=== PATIENT | male | born 1950 | race African-American/Black ===

== ENCOUNTER 2017-06-12 13:21 | Inpatient (IN) ==
[2017-06-12] MEDS ORDERED: 0.9 % Sodium Chloride 1,000 ML IVC ONE ×2 (13:43→14:52)
--- NOTE | 2017-06-12 13:46 | Emergency Department Note ---
Disposition Clinical Impression: Alcohol abuse, Lactic acidosis, Acute kidney injury Altered mental status Qualifiers: Altered mental status type: somnolence Qualified Code(s): R40.0 - Somnolence Disposition: Admitted As Inpatient Condition: Fair Time of Disposition: 16:10 General Adult HPI - General Chief complaint: ED Syncope Stated complaint: SYNCOPE Time Seen by Provider: 06/12/17 13:28 Source: EMS Mode of arrival: EMS Limitations: altered mental status Nursing Notes Reviewed: Yes Vital Signs Reviewed: Yes - History of Present Illness HPI Narrative: 66-year-old male presents via EMS for concerns of syncope and altered mental status. EMS gave a history of the patient was arrested last night for drunken disorderly conduct. Patient had a presumed syncopal episode. Patient's acutely altered. Patient not able to provide any history. There is no family at bedside to reside any additional history. Pain Scale: 0 - Related Data Home Medications Medication Instructions Recorded Confirmed Amlodipine Besylate 10 mg PO DAILY 06/12/17 06/12/17 Aspirin [Lo-Dose Aspirin EC] 81 mg PO DAILY 06/12/17 06/12/17 Atorvastatin Calcium [Lipitor] 20 mg PO QPM 06/12/17 06/12/17 Losartan Potassium [Cozaar] 100 mg PO DAILY 06/12/17 06/12/17 Nitroglycerin [Nitrostat] 0.4 mg SL Q5M PRN 06/12/17 06/12/17 hydroCHLOROthiazide 25 mg PO DAILY 06/12/17 06/12/17 [Hydrochlorothiazide] Allergies Allergy/AdvReac Type Severity Reaction Status Date / Time No Known Allergies Allergy Verified 06/12/17 13:26 Limitations: ROS unobtainable due to patients medical condition Past Medical History - Past Medical History Source: patient Physical Exam - General Limitations: no limitations General appearance: alert, in no apparent distress - Head Head exam: atraumatic, normocephalic, normal inspection - Eye Eye exam: Present: normal appearance, PERRL, EOMI, scleral icterus. Absent: nystagmus - ENT ENT exam: normal exam, mucous membranes dry - Neck Neck exam: Present: normal inspection - Chest Chest inspection: Present: normal inspection, symmetric chest wall rise - Respiratory Respiratory exam: Present: normal lung sounds bilaterally. Absent: respiratory distress - Cardiovascular Cardiovascular exam: Present: regular rate, normal rhythm. Absent: systolic murmur - Abdominal Exam Abdominal exam: Present: soft - Extremities Exam Extremities exam: Present: normal inspection. Absent: pedal edema - Back Exam Back exam: Present: normal inspection - Neurological Exam Neurological exam: Present: alert, CN II-XII intact. Absent: oriented X3 - Skin Skin exam: Present: warm, dry, intact, normal color Course Course Narrative: Patient is acutely altered. Patient is not able to recall where he is, the date. Patient keeps repeating stating that he would like something to drink. Patient will need an altered mental status evaluation. Disposition likely admission. - Reevaluation(s) Reevaluation #1: Discussed the case with the hospitalist who recommended to run the case by the manager transportation with the elevated lactate. Time: 15:56 Reevaluation #2: Patients results reviewed. And it appears the patient has early diverticulitis, pt already transported to the floor. Notified the hospitalist and made aware. Time: 18:09 Vital Signs Temperature 98 F 06/12/17 13:28 Pulse Rate 85 06/12/17 13:28 Respiratory Rate 18 06/12/17 13:28 Blood Pressure 95/58 06/12/17 13:28 O2 Sat by Pulse Oximetry 98 06/12/17 13:28 Temperature 98 F 06/12/17 13:28 Pulse Rate 80 06/12/17 17:27 Respiratory Rate 18 06/12/17 17:47 Blood Pressure 108/71 06/12/17 17:47 O2 Sat by Pulse Oximetry 98 06/12/17 17:27 Oxygen Delivery Oxygen Delivery Room Air Medical Decision Making - [facility] Narrative Medical decision making narrative: Patient seen and examined. Patient presents acutely altered. Patient did have evidence of lactic acidosis as well as ketoacidosis in the setting of alcoholism. Patient was given IV fluids. Patient does not have a clear source. Patient had CT scanning of the chest abdomen pelvis. Patient's head CT was negative. Patient denies drinking any other alcohol besides what he described [id number]. Patient denies any vision changes. Still producing urine. Patient will be admitted to hospital service for acute altered mental status anion gap metabolic acidosis. - Lab Data Lab results reviewed: Yes I reviewed the patient's lab results. Result diagrams: 06/12/17 14:19 06/12/17 14:19 Lab Results 0506/12/17 06/12/17 Range/Units 14:19 14:19 14:19 WBC 9.2 (4.3-11.1) K/mcL RBC 3.78 L (4.19-5.50) M/mcL Hgb 11.4 L (12.9-16.9) g/dL Hct 34.3 L (37.5-50.1) % MCV 90.7 (83.0-100.0) fL MCH 30.2 (28.0-33.3) pg MCHC 33.2 (31.6-35.5) g/dL RDW 13.8 (11.5-14.5) % Plt Count 218 (140-400) K/mcL MPV 9.8 (9.4-12.4) fL Immature Gran % 0.4 (0-4) % Seg Neutrophils % 78.5 % Lymphocytes % 11.8 % Monocytes % 8.4 % Eosinophils % 0.5 % Basophils % 0.4 % Neutrophils # 7.2 (1.6-8.9) K/mcL Lymphocytes # 1.1 (0.6-4.6) K/mcL Monocytes # 0.8 (0.0-1.3) K/mcL Eosinophils # 0.1 (0.0-0.6) K/mcL Basophils # 0.0 (0.0-0.2) K/mcL PT 11.9 (9.4-12.1) Seconds INR 1.1 APTT 20.7 L (26.0-36.0) Seconds VBG pH (7.32-7.42) pH Units VBG pCO2 (41-51) mmHg VBG pO2 (25-50) mmHg VBG HCO3 (21-27) mEq/L Sodium 139 (136-145) mEq/L Potassium 4.0 (3.5-5.1) mEq/L Chloride 103 (98-107) mEq/L Carbon Dioxide 16 L (23-29) mEq/L BUN 37 H (8-23) mg/dL Creatinine 1.94 H (0.70-1.30) mg/dL Est GFR ( Amer) 42 L (> 60) Est GFR (Non-Af Amer) 35 L (> 60) BUN/Creatinine Ratio 19 (6-26) Glucose 73 (70-105) mg/dL Calculated Osmolality 295 (280-300) Lactic Acid (0.5-2.2) mmol/L Calcium 9.5 (8.6-10.3) mg/dL Phosphorus (2.7-4.5) mg/dL Magnesium (1.6-2.6) mg/dL Total Bilirubin 0.4 (0.3-1.0) mg/dL Direct Bilirubin 0.1 (0.0-0.2) mg/dL Indirect Bilirubin 0.3 (0.0-1.2) mg/dL AST 27 (13-39) Units/L ALT 15 (7-52) Units/L Alkaline Phosphatase 50 (34-104) Units/L Ammonia (16-53) mcmol/L Creatine Kinase 262 H (30-223) Units/L Troponin I < 0.03 (< 0.04) ng/mL Serum Total Protein 7.7 (6.4-8.9) g/dL Albumin 4.1 (3.5-5.7) g/dL Globulin 3.6 H (2.4-3.5) g/dL Albumin/Globulin Ratio 1.1 (1.1-2.2) Beta-Hydroxybutyric Acd (0.02-0.27) mmol/L Urine Color (Yellow) Urine Clarity (Clear) Urine pH (5.0-8.0) pH Units Ur Specific [place] (1.010-1.025) Urine Protein (Neg-Trace) mg/dL Urine Glucose (UA) (Normal) mg/dL Urine Ketones (Negative) mg/dL Urine Blood (Negative) Urine Nitrite (Negative) Urine Bilirubin (Negative) Urine Urobilinogen (Normal) mg/dL Ur Leukocyte Esterase (Negative) Urine Microscopic RBC (0-3) per hpf Urine Microscopic WBC (0-3) per hpf Ur Squamous Epith Cells (None-Few) per lpf Urine Bacteria (None-Few) per hpf Hyaline Casts (None-Few) per lpf Ur Culture Indicated? (NO) Urine Opiates Screen (Ezekcd=052) ng/mL Ur Barbiturates Screen (Qlfsxj=383) ng/mL Ur Phencyclidine Scrn (Cutoff=25) ng/mL Ur Amphetamines Screen (Wdwigc=6961) ng/mL U Benzodiazepines Scrn (Gfyafg=584) ng/mL Urine Cocaine Screen (Cutoff= 300) ng/mL U Marijuana (THC) Screen (Cutoff = 50) ng/mL Ethyl Alcohol 207 H (Less than 10) mg/dL 06/12/17 06/12/17 06/12/17 Range/Units 14:19 14:19 14:19 WBC (4.3-11.1) K/mcL RBC (4.19-5.50) M/mcL Hgb (12.9-16.9) g/dL Hct (37.5-50.1) % MCV (83.0-100.0) fL MCH (28.0-33.3) pg MCHC (31.6-35.5) g/dL RDW (11.5-14.5) % Plt Count (140-400) K/mcL MPV (9.4-12.4) fL Immature Gran % (0-4) % Seg Neutrophils % % Lymphocytes % % Monocytes % % Eosinophils % % Basophils % % Neutrophils # (1.6-8.9) K/mcL Lymphocytes # (0.6-4.6) K/mcL Monocytes # (0.0-1.3) K/mcL Eosinophils # (0.0-0.6) K/mcL Basophils # (0.0-0.2) K/mcL PT (9.4-12.1) Seconds INR APTT (26.0-36.0) Seconds VBG pH (7.32-7.42) pH Units VBG pCO2 (41-51) mmHg VBG pO2 (25-50) mmHg VBG HCO3 (21-27) mEq/L Sodium (136-145) mEq/L Potassium (3.5-5.1) mEq/L Chloride (98-107) mEq/L Carbon Dioxide (23-29) mEq/L BUN (8-23) mg/dL Creatinine (0.70-1.30) mg/dL Est GFR ( Amer) (> 60) Est GFR (Non-Af Amer) (> 60) BUN/Creatinine Ratio (6-26) Glucose (70-105) mg/dL Calculated Osmolality (280-300) Lactic Acid (0.5-2.2) mmol/L Calcium (8.6-10.3) mg/dL Phosphorus 5.1 H (2.7-4.5) mg/dL Magnesium 1.9 (1.6-2.6) mg/dL Total Bilirubin (0.3-1.0) mg/dL Direct Bilirubin (0.0-0.2) mg/dL Indirect Bilirubin (0.0-1.2) mg/dL AST (13-39) Units/L ALT (7-52) Units/L Alkaline Phosphatase (34-104) Units/L Ammonia 39 (16-53) mcmol/L Creatine Kinase (30-223) Units/L Troponin I (< 0.04) ng/mL Serum Total Protein (6.4-8.9) g/dL Albumin (3.5-5.7) g/dL Globulin (2.4-3.5) g/dL Albumin/Globulin Ratio (1.1-2.2) Beta-Hydroxybutyric Acd 1.80 H (0.02-0.27) mmol/L Urine Color (Yellow) Urine Clarity (Clear) Urine pH (5.0-8.0) pH Units Ur Specific [place] (1.010-1.025) Urine Protein (Neg-Trace) mg/dL Urine Glucose (UA) (Normal) mg/dL Urine Ketones (Negative) mg/dL Urine Blood (Negative) Urine Nitrite (Negative) Urine Bilirubin (Negative) Urine Urobilinogen (Normal) mg/dL Ur Leukocyte Esterase (Negative) Urine Microscopic RBC (0-3) per hpf Urine Microscopic WBC (0-3) per hpf Ur Squamous Epith Cells (None-Few) per lpf Urine Bacteria (None-Few) per hpf Hyaline Casts (None-Few) per lpf Ur Culture Indicated? (NO) Urine Opiates Screen (Fwhofz=077) ng/mL Ur Barbiturates Screen (Xodhpk=425) ng/mL Ur Phencyclidine Scrn (Cutoff=25) ng/mL Ur Amphetamines Screen (Iligbl=5703) ng/mL U Benzodiazepines Scrn (Hssixp=339) ng/mL Urine Cocaine Screen (Cutoff= 300) ng/mL U Marijuana (THC) Screen (Cutoff = 50) ng/mL Ethyl Alcohol (Less than 10) mg/dL 06/12/17 06/12/17 06/12/17 Range/Units 14:19 14:38 15:28 WBC (4.3-11.1) K/mcL RBC (4.19-5.50) M/mcL Hgb (12.9-16.9) g/dL Hct (37.5-50.1) % MCV (83.0-100.0) fL MCH (28.0-33.3) pg MCHC (31.6-35.5) g/dL RDW (11.5-14.5) % Plt Count (140-400) K/mcL MPV (9.4-12.4) fL Immature Gran % (0-4) % Seg Neutrophils % % Lymphocytes % % Monocytes % % Eosinophils % % Basophils % % Neutrophils # (1.6-8.9) K/mcL Lymphocytes # (0.6-4.6) K/mcL Monocytes # (0.0-1.3) K/mcL Eosinophils # (0.0-0.6) K/mcL Basophils # (0.0-0.2) K/mcL PT (9.4-12.1) Seconds INR APTT (26.0-36.0) Seconds VBG pH 7.25 L (7.32-7.42) pH Units VBG pCO2 46 (41-51) mmHg VBG pO2 56 H (25-50) mmHg VBG HCO3 20 L (21-27) mEq/L Sodium (136-145) mEq/L Potassium (3.5-5.1) mEq/L Chloride (98-107) mEq/L Carbon Dioxide (23-29) mEq/L BUN (8-23) mg/dL Creatinine (0.70-1.30) mg/dL Est GFR ( Amer) (> 60) Est GFR (Non-Af Amer) (> 60) BUN/Creatinine Ratio (6-26) Glucose (70-105) mg/dL Calculated Osmolality (280-300) Lactic Acid 4.2 H* (0.5-2.2) mmol/L Calcium (8.6-10.3) mg/dL Phosphorus (2.7-4.5) mg/dL Magnesium (1.6-2.6) mg/dL Total Bilirubin (0.3-1.0) mg/dL Direct Bilirubin (0.0-0.2) mg/dL Indirect Bilirubin (0.0-1.2) mg/dL AST (13-39) Units/L ALT (7-52) Units/L Alkaline Phosphatase (34-104) Units/L Ammonia (16-53) mcmol/L Creatine Kinase (30-223) Units/L Troponin I (< 0.04) ng/mL Serum Total Protein (6.4-8.9) g/dL Albumin (3.5-5.7) g/dL Globulin (2.4-3.5) g/dL Albumin/Globulin Ratio (1.1-2.2) Beta-Hydroxybutyric Acd (0.02-0.27) mmol/L Urine Color Yellow (Yellow) Urine Clarity Cloudy A (Clear) Urine pH 5.5 (5.0-8.0) pH Units Ur Specific [place] 1.023 (1.010-1.025) Urine Protein 30 H (Neg-Trace) mg/dL Urine Glucose (UA) Normal (Normal) mg/dL Urine Ketones Trace H (Negative) mg/dL Urine Blood Trace H (Negative) Urine Nitrite Negative (Negative) Urine Bilirubin Negative (Negative) Urine Urobilinogen Normal (Normal) mg/dL Ur Leukocyte Esterase Negative (Negative) Urine Microscopic RBC 5-15 H (0-3) per hpf Urine Microscopic WBC 0-3 (0-3) per hpf Ur Squamous Epith Cells Many H (None-Few) per lpf Urine Bacteria None Seen (None-Few) per hpf Hyaline Casts Few (None-Few) per lpf Ur Culture Indicated? NO (NO) Urine Opiates Screen (Lunabr=301) ng/mL Ur Barbiturates Screen (Ivoksi=072) ng/mL Ur Phencyclidine Scrn (Cutoff=25) ng/mL Ur Amphetamines Screen (Vqcuuj=4754) ng/mL U Benzodiazepines Scrn (Wcbhmo=451) ng/mL Urine Cocaine Screen (Cutoff= 300) ng/mL U Marijuana (THC) Screen (Cutoff = 50) ng/mL Ethyl Alcohol (Less than 10) mg/dL 06/12/17 06/12/17 Range/Units 15:28 17:04 WBC (4.3-11.1) K/mcL RBC (4.19-5.50) M/mcL Hgb (12.9-16.9) g/dL Hct (37.5-50.1) % MCV (83.0-100.0) fL MCH (28.0-33.3) pg MCHC (31.6-35.5) g/dL RDW (11.5-14.5) % Plt Count (140-400) K/mcL MPV (9.4-12.4) fL Immature Gran % (0-4) % Seg Neutrophils % % Lymphocytes % % Monocytes % % Eosinophils % % Basophils % % Neutrophils # (1.6-8.9) K/mcL Lymphocytes # (0.6-4.6) K/mcL Monocytes # (0.0-1.3) K/mcL Eosinophils # (0.0-0.6) K/mcL Basophils # (0.0-0.2) K/mcL PT (9.4-12.1) Seconds INR APTT (26.0-36.0) Seconds VBG pH (7.32-7.42) pH Units VBG pCO2 (41-51) mmHg VBG pO2 (25-50) mmHg VBG HCO3 (21-27) mEq/L Sodium (136-145) mEq/L Potassium (3.5-5.1) mEq/L Chloride (98-107) mEq/L Carbon Dioxide (23-29) mEq/L BUN (8-23) mg/dL Creatinine (0.70-1.30) mg/dL Est GFR ( Amer) (> 60) Est GFR (Non-Af Amer) (> 60) BUN/Creatinine Ratio (6-26) Glucose (70-105) mg/dL Calculated Osmolality (280-300) Lactic Acid 5.0 H* (0.5-2.2) mmol/L Calcium (8.6-10.3) mg/dL Phosphorus (2.7-4.5) mg/dL Magnesium (1.6-2.6) mg/dL Total Bilirubin (0.3-1.0) mg/dL Direct Bilirubin (0.0-0.2) mg/dL Indirect Bilirubin (0.0-1.2) mg/dL AST (13-39) Units/L ALT (7-52) Units/L Alkaline Phosphatase (34-104) Units/L Ammonia (16-53) mcmol/L Creatine Kinase (30-223) Units/L Troponin I (< 0.04) ng/mL Serum Total Protein (6.4-8.9) g/dL Albumin (3.5-5.7) g/dL Globulin (2.4-3.5) g/dL Albumin/Globulin Ratio (1.1-2.2) Beta-Hydroxybutyric Acd (0.02-0.27) mmol/L Urine Color (Yellow) Urine Clarity (Clear) Urine pH (5.0-8.0) pH Units Ur Specific [place] (1.010-1.025) Urine Protein (Neg-Trace) mg/dL Urine Glucose (UA) (Normal) mg/dL Urine Ketones (Negative) mg/dL Urine Blood (Negative) Urine Nitrite (Negative) Urine Bilirubin (Negative) Urine Urobilinogen (Normal) mg/dL Ur Leukocyte Esterase (Negative) Urine Microscopic RBC (0-3) per hpf Urine Microscopic WBC (0-3) per hpf Ur Squamous Epith Cells (None-Few) per lpf Urine Bacteria (None-Few) per hpf Hyaline Casts (None-Few) per lpf Ur Culture Indicated? (NO) Urine Opiates Screen Negative (Jczaid=142) ng/mL Ur Barbiturates Screen Negative (Tzpayv=404) ng/mL Ur Phencyclidine Scrn Negative (Cutoff=25) ng/mL Ur Amphetamines Screen Negative (Miaflr=0818) ng/mL U Benzodiazepines Scrn Negative (Sojvki=907) ng/mL Urine Cocaine Screen Negative (Cutoff= 300) ng/mL U Marijuana (THC) Screen Negative (Cutoff = 50) ng/mL Ethyl Alcohol (Less than 10) mg/dL - Radiology Data Radiology results reviewed: Yes I reviewed the patient's radiology results. Chest X-Ray 06/12/17 13:43 IMPRESSION: 1. Basilar atelectasis without acute cardiopulmonary disease. D/ / 06/12/2017 13:59:35 Layne Villareal MD / mena Interpreting Provider: Layne Villareal MD Head CT 06/12/17 13:43 IMPRESSION: 1. No acute intracranial abnormality. 2. Diffuse cerebral atrophy with chronic small vessel ischemic disease. D/ / Luis Vital MD / Luis Vital MD Interpreting Provider: Luis Vital MD Chest X-Ray 06/12/17 13:43 IMPRESSION: 1. Basilar atelectasis without acute cardiopulmonary disease. D/ / 06/12/2017 13:59:35 Layne Villareal MD / mena Interpreting Provider: Layne Villareal MD Head CT 06/12/17 13:43 IMPRESSION: 1. No acute intracranial abnormality. 2. Diffuse cerebral atrophy with chronic small vessel ischemic disease. D/ / Luis Vital MD / Luis Vital MD Interpreting Provider: Luis Vital MD Chest CT 06/12/17 15:50 IMPRESSION: 1. No acute pulmonary abnormality. 2. Coronary artery disease. 3. Mild thickening of the distal esophagus and asymmetric thickening of the GE junction. Consider endoscopy on a nonemergent basis for further evaluation. Differential includes esophagitis ; however, underlying esophageal mass is also in the differential. D/ / Sameer Polo MD / Sameer Polo MD Interpreting Provider: Sameer Polo MD Abdomen/Pelvis CT 06/12/17 15:51 IMPRESSION: Colonic diverticulosis. Equivocal findings of inflammation adjacent to sigmoid colon could represent early diverticulitis. Hepatic steatosis. Nonobstructing nephrolithiasis. Small hiatal hernia with mild thickening of the distal esophagus, possibly reflecting esophagitis. D/ / 06/12/2017 16:42:45 Kj Soto MD / mena Interpreting Provider: Kj Soto MD - EKG Data EKG #1 EKG attestation: Yes I reviewed and interpreted this EKG. EKG shows normal: sinus rhythm Rate: normal Rhythm: NSR [place]/QRS: normal Interpretation: no acute changes S.B.A.R. - S.B.A.R. Situation: Demographics Background: Presenting Complaint Assessment: Vital Signs, Course and respsone to treatment, Patient/Family Expectation Recommendation: Barrier(s) to disposition Poli Report Given to: Dr. Chrsitine Ashton Repor Time: 16:09
[2017-06-12] MEDS ORDERED: Thiamine (B-1) 100 MG TABLET PO ONE (13:47)
[2017-06-12] MEDS ORDERED: Folic Acid 1 MG TABLET PO ONE (13:47)
[2017-06-12 14:28] LABS: Basophils % 0.4 %; Eosinophils # 0.1 K/mcL (0.0-0.6); Eosinophils % 0.5 %; Hematocrit 34.3 % (37.5-50.1); Hemoglobin 11.4 g/dL (12.9-16.9); Immature Granulocytes % 0.4 % (0-4); Lymphocytes # 1.1 K/mcL (0.6-4.6); Lymphocytes % 11.8 %; Mean Corpuscular HGB Conc 33.2 g/dL (31.6-35.5); Mean Corpuscular Hemoglobin 30.2 pg (28.0-33.3); Mean Corpuscular Volume 90.7 fL (83.0-100.0); Mean Platelet Volume 9.8 fL (9.4-12.4); Monocytes # 0.8 K/mcL (0.0-1.3); Monocytes % 8.4 %; Neutrophils # 7.2 K/mcL (1.6-8.9); Platelet Count 218 K/mcL (140-400); Red Blood Count 3.78 M/mcL (4.19-5.50); Red Cell Distribution Width 13.8 % (11.5-14.5); Segmented Neutrophils % 78.5 %
[2017-06-12 14:40] LABS: INR 1.1; Prothrombin Time 11.9 Seconds (9.4-12.1)
[2017-06-12 14:41] LABS: VBG HCO3 20 mEq/L (21-27); VBG PCO2 46 mmHg (41-51); VBG PH 7.25 pH Units (7.32-7.42); VBG PO2 56 mmHg (25-50)
[2017-06-12 14:43] LABS: Activated Partial Thrombo Time 20.7 Seconds (26.0-36.0)
[2017-06-12 14:57] LABS: Magnesium 1.9 mg/dL (1.6-2.6); Phosphorous 5.1 mg/dL (2.7-4.5)
[2017-06-12 14:59] LABS: Troponin I < 0.03 ng/mL (< 0.04)
[2017-06-12 15:01] LABS: Alanine Aminotransferase 15 Units/L (7-52); Albumin 4.1 g/dL (3.5-5.7); Albumin/Globulin Ratio 1.1 (1.1-2.2); Alkaline Phosphatase 50 Units/L (34-104); Aspartate Amino Transferase 27 Units/L (13-39); BUN/Creatinine Ratio 19 (6-26); Bilirubin,Direct 0.1 mg/dL (0.0-0.2); Bilirubin,Indirect 0.3 mg/dL (0.0-1.2); Bilirubin,Total 0.4 mg/dL (0.3-1.0); Blood Urea Nitrogen 37 mg/dL (8-23); Calcium 9.5 mg/dL (8.6-10.3); Carbon Dioxide 16 mEq/L (23-29); Chloride 103 mEq/L (98-107); Creatine Kinase 262 Units/L (30-223); Ethanol 207 mg/dL (Less than 10); Globulin 3.6 g/dL (2.4-3.5); Glucose 73 mg/dL (70-105); Osmolality,Calculated 295 (280-300); Sodium 139 mEq/L (136-145); Total Protein 7.7 g/dL (6.4-8.9); eGFR For African Americans 42 (> 60); eGFR For Non-African Americans 35 (> 60)
--- NOTE | 2017-06-12 15:35 | Emergency Department Note ---
START Narrative - START START: Bedside Ultrasound preformed at the request of Dr. Wan and Dr. Srikanth Restrepo. Indications: syncope Views: parasternal long axis, short axis, and subxiphiod. Findings: Adequate subxiphiod view shows no pericardial fluid, no hypo or hyper dynamic state, and no evidence of septal bowing. Inadequate parasternal views. Interpretation: Limited secondary to suboptimal views. No pericardial effusion No overt hyper/hypo dynamic state
[2017-06-12 15:48] LABS: Bilirubin,Urine Negative (Negative); Blood,Urine Trace (Negative); Clarity,Urine Cloudy (Clear); Color,Urine Yellow (Yellow); Glucose,Urine (UA) Normal (Normal); Ketones,Urine Trace mg/dL (Negative); Leukocyte Esterase,Urine Negative (Negative); Nitrite,Urine Negative (Negative); PH,Urine 5.5 pH Units (5.0-8.0); Protein,Urine 30 mg/dL (Neg-Trace); Specific Gravity,Urine 1.023 (1.010-1.025); Urobilinogen,Urine Normal (Normal)
[2017-06-12] MEDS ORDERED: Isovue-370 500 ML INFUS..BTL IV ONE (15:50)
[2017-06-12 15:54] LABS: Bacteria,Urine None Seen per hpf (None-Few); Hyaline Casts,Urine Few per lpf (None-Few); Squamous Epithelial Cell,Urine Many per lpf (None-Few); WBC,Urine 0-3 per hpf (0-3)
[2017-06-12 16:05] LABS: Amphetamine Screen,Urine Negative ng/mL (Cutoff=1000); Barbiturate Screen,Urine Negative ng/mL (Cutoff=200); Benzodiazepines Screen,Urine Negative ng/mL (Cutoff=200); Cannabinoid Screen,Urine Negative ng/mL (Cutoff = 50); Cocaine Screen,Urine Negative ng/mL (Cutoff= 300); Opiate Screen,Urine Negative ng/mL (Cutoff=300); Phencyclidine Screen,Urine Negative ng/mL (Cutoff=25)
[2017-06-12] MEDS ORDERED: Naloxone 0.4 MG/ML INJ IVP PRN (17:06)
[2017-06-12] MEDS ORDERED: diazePAM 10 MG/2 ML SYRINGE IVP PRN ×5 (17:11)
[2017-06-12] MEDS ORDERED: D5% in Water 1,000 ML IVC PRN (17:13)
[2017-06-12] MEDS ORDERED: Dextrose Gel 15 GM/37.5 ML TUBE PO PRN ×2 (17:13)
[2017-06-12] MEDS ORDERED: *HR* Dextrose 50 % in Water (Syg) 50 ML SYRINGE IVP PRN (17:13)
--- NOTE | 2017-06-12 17:16 | Internal Med History&Physical ---
Date of Encounter: 06/12/17 Time of Encounter: 17:28 Internal Medicine - H&P: HPI Chief complaint: passed out Admitted From: Emergency Dept History of present illness: Mr. Barber is a 66 year old male history of alcoholism, hypertension, diabetes type 2 on oral meds who presents with syncope episode while intoxicated with alcohol. He had been arrested yesterday for being drunk and disorderly and was placed in a [facility]. While in fci he apparently had a syncopal episode where he passed out. There was no collateral history and history was obtained through ED report. In the ER he was found to have elevated lactate in the setting of high alcohol levels. He denies any abdominal pain and apparently feels well. He lives with his sisters at home. EKG personally reviewed with rate of 84, normal sinus rhythm CT/CT abd pelvis wo no iv no oral IMPRESSION: Colonic diverticulosis. Equivocal findings of inflammation adjacent to sigmoid colon could represent early diverticulitis. Hepatic steatosis. Nonobstructing nephrolithiasis. Small hiatal hernia with mild thickening of the distal esophagus, possibly reflecting esophagitis. CT/CT chest wo con IMPRESSION: 1. No acute pulmonary abnormality. 2. Coronary artery disease. 3. Mild thickening of the distal esophagus and asymmetric thickening of the GE junction. Consider endoscopy on a nonemergent basis for further evaluation. Differential includes esophagitis; however, underlying esophageal mass is also in the differential. Internal Medicine - H&P: Meds Amlodipine Besylate 10 mg PO DAILY 06/12/17 [History] Aspirin [Lo-Dose Aspirin EC] 81 mg PO DAILY 06/12/17 [History] Losartan Potassium [Cozaar] 100 mg PO DAILY 06/12/17 [History] hydroCHLOROthiazide [Hydrochlorothiazide] 25 mg PO DAILY 06/12/17 [History] 3 Allergy/AdvReac Type Severity Reaction Status Date / Time No Known Allergies Allergy Verified 06/12/17 13:26 All Systems PM: A 10-system review of systems was performed and is negative for pertinent findings except as documented above in the HPI. Review of systems: ROS 14 point review of systems reviewed as best as possible given presentation. Pertinent positive or negative as per HPI or otherwise reviewed as negative - Constitutional Vitals: Temp Pulse Resp BP Pulse Ox 98 F 85 18 114/70 96 06/12/17 13:28 06/12/17 16:32 06/12/17 16:32 06/12/17 16:32 06/12/17 16:32 Exam: General - Alert Psych - Appropriate affect/speech. No agitation Eyes - ALEKSANDRA. Eye lids intact. No scleral icterus Neuro - No gross peripheral or central neuro deficits on inspection Heart - Sinus. RRR. S1 and S2 present. No added HS/murmurs appreciated. No elevated JVD appreciated. Lung - Adequate air entry b/l, No crackles/wheezes appreciated GI - Soft, non-tender. No hepatosplenomegaly/ascites. BS+ - No CVA/suprapubic tenderness or palpable bladder distension Skin - Intact. No rash/petechiae/ecchymosis. Warm extremities Internal Med - H&P Results - Labs CBC & Chem 7: 06/12/17 14:19 06/12/17 14:19 - Assessment and plan (1) Lactic acidosis Current Visit: Yes Status: Acute Assessment and plan: suspect related alcoholic intoxication check liver echotexture on ultrasound - could be related to liver disease IVF trend labs no overt evidence of sepsis or diverticulitis No belly pain to suggest clinical diverticulitis (equivocal on CT). Will follow clinically and if symptoms develop, would start IV antibiotics while inpatient - will try clears for now check blood cx screen (2) Alcohol abuse Current Visit: Yes Status: Acute Assessment and plan: alcohol intoxication leading to syncope - alcohol level elevated (3) Acute kidney injury Current Visit: Yes Status: Acute Assessment and plan: likely 2/2 above IVF trend lab (4) Altered mental status Current Visit: Yes Status: Acute Assessment and plan: 2/2 alcohol intoxication Qualifiers: Altered mental status type: somnolence Qualified Code(s): R40.0 - Somnolence (5) HTN (hypertension) Current Visit: Yes Status: Acute Assessment and plan: normotensive, hold BP med for now Qualifiers: Hypertension type: essential hypertension Qualified Code(s): I10 - Essential (primary) hypertension (6) DMII (diabetes mellitus, type 2) Current Visit: Yes Status: Acute Assessment and plan: check a1c AC/HS cbg for now since admission BS normal if CBG high, will start ISS Qualifiers: Diabetes mellitus assistant terminal manager insulin use: without penitentiary use Diabetes mellitus complication status: without complication Qualified Code(s): E11.9 - Type 2 diabetes mellitus without complications - Time Spent With Patient Total time spent is greater than 50% in coordination of care (as documented) at patient's floor/unit and/or counseling patient:
--- NOTE | 2017-06-12 19:05 | Emergency Department Note ---
Disposition Clinical Impression: Alcohol abuse, Lactic acidosis, Acute kidney injury Altered mental status Qualifiers: Altered mental status type: somnolence Qualified Code(s): R40.0 - Somnolence Disposition: Admitted As Inpatient Condition: Fair General Adult HPI - General Chief complaint: ED Syncope Stated complaint: SYNCOPE Time Seen by Provider: 06/12/17 13:28 Source: EMS Mode of arrival: EMS Limitations: no limitations - History of Present Illness Pain Scale: 0 - Related Data Home Medications Medication Instructions Recorded Confirmed Amlodipine Besylate 10 mg PO DAILY 06/12/17 06/12/17 Aspirin [Lo-Dose Aspirin EC] 81 mg PO DAILY 06/12/17 06/12/17 Atorvastatin Calcium [Lipitor] 20 mg PO QPM 06/12/17 06/12/17 Losartan Potassium [Cozaar] 100 mg PO DAILY 06/12/17 06/12/17 Nitroglycerin [Nitrostat] 0.4 mg SL Q5M PRN 06/12/17 06/12/17 hydroCHLOROthiazide 25 mg PO DAILY 06/12/17 06/12/17 [Hydrochlorothiazide] Allergies Allergy/AdvReac Type Severity Reaction Status Date / Time No Known Allergies Allergy Verified 06/12/17 13:26 Physical Exam - General Limitations: no limitations General appearance: alert, in no apparent distress Course Vital Signs Temperature 98 F 06/12/17 13:28 Pulse Rate 85 06/12/17 13:28 Respiratory Rate 18 06/12/17 13:28 Blood Pressure 95/58 06/12/17 13:28 O2 Sat by Pulse Oximetry 98 06/12/17 13:28 Temperature 98.3 F 06/12/17 18:54 Pulse Rate 82 06/12/17 18:54 Respiratory Rate 16 06/12/17 18:54 Blood Pressure 111/63 06/12/17 18:54 O2 Sat by Pulse Oximetry 99 06/12/17 18:54 Oxygen Delivery Oxygen Delivery Room Air Medical Decision Making - Lab Data Result diagrams: 06/12/17 14:19 06/12/17 14:19 Lab Results 06/12/17 06/12/17 06/12/17 Range/Units 14:19 14:19 14:19 WBC 9.2 (4.3-11.1) K/mcL RBC 3.78 L (4.19-5.50) M/mcL Hgb 11.4 L (12.9-16.9) g/dL Hct 34.3 L (37.5-50.1) % MCV 90.7 (83.0-100.0) fL MCH 30.2 (28.0-33.3) pg MCHC 33.2 (31.6-35.5) g/dL RDW 13.8 (11.5-14.5) % Plt Count 218 (140-400) K/mcL MPV 9.8 (9.4-12.4) fL Immature Gran % 0.4 (0-4) % Seg Neutrophils % 78.5 % Lymphocytes % 11.8 % Monocytes % 8.4 % Eosinophils % 0.5 % Basophils % 0.4 % Neutrophils # 7.2 (1.6-8.9) K/mcL Lymphocytes # 1.1 (0.6-4.6) K/mcL Monocytes # 0.8 (0.0-1.3) K/mcL Eosinophils # 0.1 (0.0-0.6) K/mcL Basophils # 0.0 (0.0-0.2) K/mcL PT 11.9 (9.4-12.1) Seconds INR 1.1 APTT 20.7 L (26.0-36.0) Seconds VBG pH (7.32-7.42) pH Units VBG pCO2 (41-51) mmHg VBG pO2 (25-50) mmHg VBG HCO3 (21-27) mEq/L Sodium 139 (136-145) mEq/L Potassium 4.0 (3.5-5.1) mEq/L Chloride 103 (98-107) mEq/L Carbon Dioxide 16 L (23-29) mEq/L BUN 37 H (8-23) mg/dL Creatinine 1.94 H (0.70-1.30) mg/dL Est GFR ( Amer) 42 L (> 60) Est GFR (Non-Af Amer) 35 L (> 60) BUN/Creatinine Ratio 19 (6-26) Glucose 73 (70-105) mg/dL Calculated Osmolality 295 (280-300) Lactic Acid (0.5-2.2) mmol/L Calcium 9.5 (8.6-10.3) mg/dL Phosphorus (2.7-4.5) mg/dL Magnesium (1.6-2.6) mg/dL Total Bilirubin 0.4 (0.3-1.0) mg/dL Direct Bilirubin 0.1 (0.0-0.2) mg/dL Indirect Bilirubin 0.3 (0.0-1.2) mg/dL AST 27 (13-39) Units/L ALT 15 (7-52) Units/L Alkaline Phosphatase 50 (34-104) Units/L Ammonia (16-53) mcmol/L Creatine Kinase 262 H (30-223) Units/L Troponin I < 0.03 (< 0.04) ng/mL Serum Total Protein 7.7 (6.4-8.9) g/dL Albumin 4.1 (3.5-5.7) g/dL Globulin 3.6 H (2.4-3.5) g/dL Albumin/Globulin Ratio 1.1 (1.1-2.2) Beta-Hydroxybutyric Acd (0.02-0.27) mmol/L Urine Color (Yellow) Urine Clarity (Clear) Urine pH (5.0-8.0) pH Units Ur Specific [place] (1.010-1.025) Urine Protein (Neg-Trace) mg/dL Urine Glucose (UA) (Normal) mg/dL Urine Ketones (Negative) mg/dL Urine Blood (Negative) Urine Nitrite (Negative) Urine Bilirubin (Negative) Urine Urobilinogen (Normal) mg/dL Ur Leukocyte Esterase (Negative) Urine Microscopic RBC (0-3) per hpf Urine Microscopic WBC (0-3) per hpf Ur Squamous Epith Cells (None-Few) per lpf Urine Bacteria (None-Few) per hpf Hyaline Casts (None-Few) per lpf Ur Culture Indicated? (NO) Urine Opiates Screen (Fnfyvt=336) ng/mL Ur Barbiturates Screen (Cxlwyd=324) ng/mL Ur Phencyclidine Scrn (Cutoff=25) ng/mL Ur Amphetamines Screen (Leeliu=7666) ng/mL U Benzodiazepines Scrn (Gzvdic=840) ng/mL Urine Cocaine Screen (Cutoff= 300) ng/mL U Marijuana (THC) Screen (Cutoff = 50) ng/mL Ethyl Alcohol 207 H (Less than 10) mg/dL 06/12/17 06/12/17 06/12/17 Range/Units 14:19 14:19 14:19 WBC (4.3-11.1) K/mcL RBC (4.19-5.50) M/mcL Hgb (12.9-16.9) g/dL Hct (37.5-50.1) % MCV (83.0-100.0) fL MCH (28.0-33.3) pg MCHC (31.6-35.5) g/dL RDW (11.5-14.5) % Plt Count (140-400) K/mcL MPV (9.4-12.4) fL Immature Gran % (0-4) % Seg Neutrophils % % Lymphocytes % % Monocytes % % Eosinophils % % Basophils % % Neutrophils # (1.6-8.9) K/mcL Lymphocytes # (0.6-4.6) K/mcL Monocytes # (0.0-1.3) K/mcL Eosinophils # (0.0-0.6) K/mcL Basophils # (0.0-0.2) K/mcL PT (9.4-12.1) Seconds INR APTT (26.0-36.0) Seconds VBG pH (7.32-7.42) pH Units VBG pCO2 (41-51) mmHg VBG pO2 (25-50) mmHg VBG HCO3 (21-27) mEq/L Sodium (136-145) mEq/L Potassium (3.5-5.1) mEq/L Chloride (98-107) mEq/L Carbon Dioxide (23-29) mEq/L BUN (8-23) mg/dL Creatinine (0.70-1.30) mg/dL Est GFR ( Amer) (> 60) Est GFR (Non-Af Amer) (> 60) BUN/Creatinine Ratio (6-26) Glucose (70-105) mg/dL Calculated Osmolality (280-300) Lactic Acid (0.5-2.2) mmol/L Calcium (8.6-10.3) mg/dL Phosphorus 5.1 H (2.7-4.5) mg/dL Magnesium 1.9 (1.6-2.6) mg/dL Total Bilirubin (0.3-1.0) mg/dL Direct Bilirubin (0.0-0.2) mg/dL Indirect Bilirubin (0.0-1.2) mg/dL AST (13-39) Units/L ALT (7-52) Units/L Alkaline Phosphatase (34-104) Units/L Ammonia 39 (16-53) mcmol/L Creatine Kinase (30-223) Units/L Troponin I (< 0.04) ng/mL Serum Total Protein (6.4-8.9) g/dL Albumin (3.5-5.7) g/dL Globulin (2.4-3.5) g/dL Albumin/Globulin Ratio (1.1-2.2) Beta-Hydroxybutyric Acd 1.80 H (0.02-0.27) mmol/L Urine Color (Yellow) Urine Clarity (Clear) Urine pH (5.0-8.0) pH Units Ur Specific [place] (1.010-1.025) Urine Protein (Neg-Trace) mg/dL Urine Glucose (UA) (Normal) mg/dL Urine Ketones (Negative) mg/dL Urine Blood (Negative) Urine Nitrite (Negative) Urine Bilirubin (Negative) Urine Urobilinogen (Normal) mg/dL Ur Leukocyte Esterase (Negative) Urine Microscopic RBC (0-3) per hpf Urine Microscopic WBC (0-3) per hpf Ur Squamous Epith Cells (None-Few) per lpf Urine Bacteria (None-Few) per hpf Hyaline Casts (None-Few) per lpf Ur Culture Indicated? (NO) Urine Opiates Screen (Mezpwi=407) ng/mL Ur Barbiturates Screen (Bkmdkg=304) ng/mL Ur Phencyclidine Scrn (Cutoff=25) ng/mL Ur Amphetamines Screen (Fstryf=4483) ng/mL U Benzodiazepines Scrn (Txqvnz=466) ng/mL Urine Cocaine Screen (Cutoff= 300) ng/mL U Marijuana (THC) Screen (Cutoff = 50) ng/mL Ethyl Alcohol (Less than 10) mg/dL 06/12/17 06/12/17 06/12/17 Range/Units 14:19 14:38 15:28 WBC (4.3-11.1) K/mcL RBC (4.19-5.50) M/mcL Hgb (12.9-16.9) g/dL Hct (37.5-50.1) % MCV (83.0-100.0) fL MCH (28.0-33.3) pg MCHC (31.6-35.5) g/dL RDW (11.5-14.5) % Plt Count (140-400) K/mcL MPV (9.4-12.4) fL Immature Gran % (0-4) % Seg Neutrophils % % Lymphocytes % % Monocytes % % Eosinophils % % Basophils % % Neutrophils # (1.6-8.9) K/mcL Lymphocytes # (0.6-4.6) K/mcL Monocytes # (0.0-1.3) K/mcL Eosinophils # (0.0-0.6) K/mcL Basophils # (0.0-0.2) K/mcL PT (9.4-12.1) Seconds INR APTT (26.0-36.0) Seconds VBG pH 7.25 L (7.32-7.42) pH Units VBG pCO2 46 (41-51) mmHg VBG pO2 56 H (25-50) mmHg VBG HCO3 20 L (21-27) mEq/L Sodium (136-145) mEq/L Potassium (3.5-5.1) mEq/L Chloride (98-107) mEq/L Carbon Dioxide (23-29) mEq/L BUN (8-23) mg/dL Creatinine (0.70-1.30) mg/dL Est GFR ( Amer) (> 60) Est GFR (Non-Af Amer) (> 60) BUN/Creatinine Ratio (6-26) Glucose (70-105) mg/dL Calculated Osmolality (280-300) Lactic Acid 4.2 H* (0.5-2.2) mmol/L Calcium (8.6-10.3) mg/dL Phosphorus (2.7-4.5) mg/dL Magnesium (1.6-2.6) mg/dL Total Bilirubin (0.3-1.0) mg/dL Direct Bilirubin (0.0-0.2) mg/dL Indirect Bilirubin (0.0-1.2) mg/dL AST (13-39) Units/L ALT (7-52) Units/L Alkaline Phosphatase (34-104) Units/L Ammonia (16-53) mcmol/L Creatine Kinase (30-223) Units/L Troponin I (< 0.04) ng/mL Serum Total Protein (6.4-8.9) g/dL Albumin (3.5-5.7) g/dL Globulin (2.4-3.5) g/dL Albumin/Globulin Ratio (1.1-2.2) Beta-Hydroxybutyric Acd (0.02-0.27) mmol/L Urine Color Yellow (Yellow) Urine Clarity Cloudy A (Clear) Urine pH 5.5 (5.0-8.0) pH Units Ur Specific [place] 1.023 (1.010-1.025) Urine Protein 30 H (Neg-Trace) mg/dL Urine Glucose (UA) Normal (Normal) mg/dL Urine Ketones Trace H (Negative) mg/dL Urine Blood Trace H (Negative) Urine Nitrite Negative (Negative) Urine Bilirubin Negative (Negative) Urine Urobilinogen Normal (Normal) mg/dL Ur Leukocyte Esterase Negative (Negative) Urine Microscopic RBC 5-15 H (0-3) per hpf Urine Microscopic WBC 0-3 (0-3) per hpf Ur Squamous Epith Cells Many H (None-Few) per lpf Urine Bacteria None Seen (None-Few) per hpf Hyaline Casts Few (None-Few) per lpf Ur Culture Indicated? NO (NO) Urine Opiates Screen (Xoacqr=324) ng/mL Ur Barbiturates Screen (Bhxfdw=941) ng/mL Ur Phencyclidine Scrn (Cutoff=25) ng/mL Ur Amphetamines Screen (Rogzws=6112) ng/mL U Benzodiazepines Scrn (Qkcgua=932) ng/mL Urine Cocaine Screen (Cutoff= 300) ng/mL U Marijuana (THC) Screen (Cutoff = 50) ng/mL Ethyl Alcohol (Less than 10) mg/dL 06/12/17 06/12/17 Range/Units 15:28 17:04 WBC (4.3-11.1) K/mcL RBC (4.19-5.50) M/mcL Hgb (12.9-16.9) g/dL Hct (37.5-50.1) % MCV (83.0-100.0) fL MCH (28.0-33.3) pg MCHC (31.6-35.5) g/dL RDW (11.5-14.5) % Plt Count (140-400) K/mcL MPV (9.4-12.4) fL Immature Gran % (0-4) % Seg Neutrophils % % Lymphocytes % % Monocytes % % Eosinophils % % Basophils % % Neutrophils # (1.6-8.9) K/mcL Lymphocytes # (0.6-4.6) K/mcL Monocytes # (0.0-1.3) K/mcL Eosinophils # (0.0-0.6) K/mcL Basophils # (0.0-0.2) K/mcL PT (9.4-12.1) Seconds INR APTT (26.0-36.0) Seconds VBG pH (7.32-7.42) pH Units VBG pCO2 (41-51) mmHg VBG pO2 (25-50) mmHg VBG HCO3 (21-27) mEq/L Sodium (136-145) mEq/L Potassium (3.5-5.1) mEq/L Chloride (98-107) mEq/L Carbon Dioxide (23-29) mEq/L BUN (8-23) mg/dL Creatinine (0.70-1.30) mg/dL Est GFR ( Amer) (> 60) Est GFR (Non-Af Amer) (> 60) BUN/Creatinine Ratio (6-26) Glucose (70-105) mg/dL Calculated Osmolality (280-300) Lactic Acid 5.0 H* (0.5-2.2) mmol/L Calcium (8.6-10.3) mg/dL Phosphorus (2.7-4.5) mg/dL Magnesium (1.6-2.6) mg/dL Total Bilirubin (0.3-1.0) mg/dL Direct Bilirubin (0.0-0.2) mg/dL Indirect Bilirubin (0.0-1.2) mg/dL AST (13-39) Units/L ALT (7-52) Units/L Alkaline Phosphatase (34-104) Units/L Ammonia (16-53) mcmol/L Creatine Kinase (30-223) Units/L Troponin I (< 0.04) ng/mL Serum Total Protein (6.4-8.9) g/dL Albumin (3.5-5.7) g/dL Globulin (2.4-3.5) g/dL Albumin/Globulin Ratio (1.1-2.2) Beta-Hydroxybutyric Acd (0.02-0.27) mmol/L Urine Color (Yellow) Urine Clarity (Clear) Urine pH (5.0-8.0) pH Units Ur Specific [place] (1.010-1.025) Urine Protein (Neg-Trace) mg/dL Urine Glucose (UA) (Normal) mg/dL Urine Ketones (Negative) mg/dL Urine Blood (Negative) Urine Nitrite (Negative) Urine Bilirubin (Negative) Urine Urobilinogen (Normal) mg/dL Ur Leukocyte Esterase (Negative) Urine Microscopic RBC (0-3) per hpf Urine Microscopic WBC (0-3) per hpf Ur Squamous Epith Cells (None-Few) per lpf Urine Bacteria (None-Few) per hpf Hyaline Casts (None-Few) per lpf Ur Culture Indicated? (NO) Urine Opiates Screen Negative (Obxykd=744) ng/mL Ur Barbiturates Screen Negative (Hqgstn=150) ng/mL Ur Phencyclidine Scrn Negative (Cutoff=25) ng/mL Ur Amphetamines Screen Negative (Qpcgwe=2161) ng/mL U Benzodiazepines Scrn Negative (Fguzde=474) ng/mL Urine Cocaine Screen Negative (Cutoff= 300) ng/mL U Marijuana (THC) Screen Negative (Cutoff = 50) ng/mL Ethyl Alcohol (Less than 10) mg/dL Attestation Statement - Attestation Attestation: I examined this patient and my medical decision-making was reviewed with the Resident Physician, Dr. Wan. I agree with the documented findings, disposition and treatment plan as described except to the extent set forth below. Patient is a 66-year-old male who is sent to the emergency department from the detention for evaluation for syncopal episode. Patient was reportedly arrested for disorderly conduct while intoxicated and still having altered mental status. Patient poor historian. Unable to obtain accurate history from patient at this time. I agree with patient's physical exam findings as documented. Vital signs are stable. Patient received IV fluid bolus labs were drawn and sent patient was sent for head CT due to altered mental status for further evaluation. Patient's EKG was sinus rhythm without acute ischemia. Patient's head CT was unremarkable. Patient with AK I as well as acute alcohol intoxication based on blood work. Also patient with a lactic acidosis with unknown etiology. Chest x-ray is clear urinalysis is unremarkable. Vitals have been stable and actually blood pressures improved during fluid resuscitation. Patient underwent CT scanning of the chest and abdomen and pelvis which shows evidence of esophagitis as well as possible early diverticulitis. Patient continues to receive IV fluids, he will be covered with IV antibiotics in admitted to the hospitalist service. Spreader was down to see the patient has never some question on appropriate level of care for admission. They feel he would be stable at telemetry. Patient will be admitted to the hospitalist service for further evaluation and management altered metal status.
[2017-06-12] MEDS: 0.9 % Sodium Chloride 1,000 ML IVC SCH ×3 (20:11→22:12)
[2017-06-12] MEDS: Thiamine (B-1) 100 MG, Folic Acid 1 MG, MVI, adult with vitamin K 10 ML in 0.9 % Sodi... IVPB SCH (22:11)
--- NOTE | 2017-06-12 22:30 | Electrocardiograph Report ---
[facility] Test Date: 2017-06-12 Pat Name: Oscar Barber Department: [id number] Room: 2A71 Gender: M Remote Operations Producer: SATYA : [id number] Requested By: Srinivasa Wan Order Number: [id number] Reading MD: Robinson Astorga Measurements Intervals [place] Rate: 84 P: 32 MN: 138 QRS: 22 QRSD: 92 T: 56 QT: 381 QTc: 422 Interpretive Statements SINUS RHYTHM Electronically Signed On 06-12-2017 22:28:54 EDT by Robinson Astorga
[2017-06-13 05:38] LABS: Basophils % 0.2 %; Eosinophils # 0.1 K/mcL (0.0-0.6); Eosinophils % 0.8 %; Hematocrit 28.9 % (37.5-50.1); Immature Granulocytes % 0.2 % (0-4); Lymphocytes # 0.9 K/mcL (0.6-4.6); Lymphocytes % 14.3 %; Mean Corpuscular HGB Conc 33.6 g/dL (31.6-35.5); Mean Corpuscular Hemoglobin 29.7 pg (28.0-33.3); Mean Corpuscular Volume 88.4 fL (83.0-100.0); Mean Platelet Volume 9.7 fL (9.4-12.4); Monocytes # 1.1 K/mcL (0.0-1.3); Monocytes % 17.2 %; Neutrophils # 4.3 K/mcL (1.6-8.9); Platelet Count 181 K/mcL (140-400); Red Blood Count 3.27 M/mcL (4.19-5.50); Red Cell Distribution Width 13.4 % (11.5-14.5); Segmented Neutrophils % 67.3 %
[2017-06-13 05:39] LABS: Hemoglobin 9.7 g/dL (12.9-16.9)
[2017-06-13] MEDS ORDERED: *HR* Enoxaparin 30 MG/0.3 ML SYRINGE SQ SCH (06:00)
[2017-06-13 06:02] LABS: Alanine Aminotransferase 13 Units/L (7-52); Albumin 3.5 g/dL (3.5-5.7); Albumin/Globulin Ratio 1.3 (1.1-2.2); Alkaline Phosphatase 40 Units/L (34-104); Aspartate Amino Transferase 23 Units/L (13-39); BUN/Creatinine Ratio 23 (6-26); Bilirubin,Indirect 0.5 mg/dL (0.0-1.2); Bilirubin,Total 0.5 mg/dL (0.3-1.0); Blood Urea Nitrogen 30 mg/dL (8-23); Carbon Dioxide 22 mEq/L (23-29); Chloride 106 mEq/L (98-107); Globulin 2.8 g/dL (2.4-3.5); Glucose 77 mg/dL (70-105); Osmolality,Calculated 293 (280-300); Potassium 3.9 mEq/L (3.5-5.1); Sodium 139 mEq/L (136-145); Total Protein 6.3 g/dL (6.4-8.9); eGFR For African Americans > 60 (> 60); eGFR For Non-African Americans 56 (> 60)
[2017-06-13 08:55] LABS: Estimated Average Glucose 131 mg/dl; Hemoglobin A1C 6.2 %
[2017-06-13] MEDS: Thiamine (B-1) 100 MG TABLET PO SCH (10:07)
[2017-06-13] MEDS: Aspirin Enteric Coated 81 MG Tablet PO SCH (10:07)
[2017-06-13] MEDS: Folic Acid 1 MG TABLET PO SCH (10:07)
[2017-06-13] MEDS: 0.9 % Sodium Chloride 1,000 ML IVC SCH ×2 (14:08→16:42)
[2017-06-13] MEDS ORDERED: D5% in Water 1,000 ML IVC PRN (15:26)
[2017-06-13] MEDS ORDERED: Dextrose Gel 15 GM/37.5 ML TUBE PO PRN ×2 (15:26)
[2017-06-13] MEDS ORDERED: *HR* Dextrose 50 % in Water (Syg) 50 ML SYRINGE IVP PRN (15:26)
--- NOTE | 2017-06-13 15:30 | Internal Med Progress Note ---
Date of Encounter: 06/13/17 Time of Encounter: 15:28 - Assessment and plan (1) Alcohol abuse Current Visit: Yes Status: Acute Assessment and plan: alcohol intoxication leading to syncope - alcohol level elevated Start Librium to avoid withdrawal Diazepam IV as needed (2) Altered mental status Current Visit: Yes Status: Acute Assessment and plan: Acute encephalopathy/toxic 2/2 alcohol intoxication Qualifiers: Altered mental status type: somnolence Qualified Code(s): R40.0 - Somnolence (3) Lactic acidosis Current Visit: Yes Status: Acute Assessment and plan: suspect related alcoholic intoxication Resolved IVF trend labs no evidence of sepsis or acute diverticulitis No belly pain to suggest clinical diverticulitis (equivocal on CT). Will follow clinically and if symptoms develop, would start IV antibiotics if becomes symptomatic May start diet (4) Acute kidney injury Current Visit: Yes Status: Acute Assessment and plan: likely 2/2 dehydration IVF Improving (5) HTN (hypertension) Current Visit: Yes Status: Acute Assessment and plan: normotensive, hold amlodipine, hydrochlorothiazide and losartan for now Qualifiers: Hypertension type: essential hypertension Qualified Code(s): I10 - Essential (primary) hypertension (6) DMII (diabetes mellitus, type 2) Current Visit: Yes Status: Acute Assessment and plan: A1c is 6.2 ISS Qualifiers: Diabetes mellitus fci insulin use: without electrical installer use Diabetes mellitus complication status: without complication Qualified Code(s): E11.9 - Type 2 diabetes mellitus without complications (7) Esophagitis Current Visit: Yes Status: Acute Assessment and plan: Possible esophagitis alcohol related CT scan of the chest showed:1. No acute pulmonary abnormality. 2. Coronary artery disease. 3. Mild thickening of the distal esophagus and asymmetric thickening of the GE junction Start Protonix IV the patient does not want to have an endoscopy, GI consult was offered but he prefers to follow-up as an outpatient (8) Anemia Current Visit: Yes Status: Acute Assessment and plan: Possibly related to dilution Check Hemoccult and consider insisting on GI evaluation Qualifiers: Anemia type: iron deficiency Iron deficiency anemia type: other iron deficiency Qualified Code(s): D50.8 - Other iron deficiency anemias - Time Spent With Patient Total time spent is greater than 50% in coordination of care (as documented) at patient's floor/unit and/or counseling patient: - Subjective Interval history: Disoriented in time, complaining about pain and left hand, denies any pain whatsoever when or difficulty swallowing. Denies any diarrhea or abdominal pain no dysuria. No chest pain or shortness of breath - Constitutional Vitals: Temp Pulse Resp BP Pulse Ox 98.7 F 75 17 128/65 99 06/13/17 11:52 06/13/17 11:52 06/13/17 11:52 06/13/17 11:52 06/13/17 11:52 General appearance: Present: A&O X 2 - Head Head exam: Present: atraumatic, normocephalic - Eye Eye exam: Present: PERRL, conjuntiva pink, sclera anicteric Pupils: Present: PERRL - Neck Neck exam general surgery: Present: supple, trachea midline. Absent: lymphadenopathy - Respiratory Respiratory exam: Present: CTAB. Absent: accessory muscle use, rales, rhonchi, wheezes - Cardiovascular Cardiovascular exam: Present: RRR, +S1, +S2. Absent: diastolic murmur, gallop, rubs, systolic murmur - GI/Abdominal GI/Abdominal exam: Present: normal bowel sounds, soft, no peritoneal signs. Absent: distended, tenderness - Extremities Exam Extremities exam: Present: warm, radial pulses palpable and symmetrical. Absent : calf tenderness, cyanotic, pedal edema Additional comments: Left hand is severely swollen due to infiltration of peripheral IV - Neurological Exam Neurological exam: Present: CN II-XII intact, no focal deficits. Absent: oriented X3, pronater drift, facial droop, speech deficit - Skin Skin exam: Present: dry, intact Internal Medicine: Result - Labs CBC & Chem 7: 06/13/17 05:30 06/13/17 05:30 Labs: Short CBC 06/13/17 Range/Units 05:30 WBC 6.4 (4.3-11.1) K/mcL Hgb 9.7 L D (12.9-16.9) g/dL Hct 28.9 L (37.5-50.1) % Plt Count 181 (140-400) K/mcL Neutrophils # 4.3 (1.6-8.9) K/mcL BMP 06/13/17 05:30 Sodium 139 Potassium 3.9 Chloride 106 Carbon Dioxide 22 L BUN 30 H Creatinine 1.29 Glucose 77 Calcium 8.0 L Liver Function 06/13/17 Range/Units 05:30 Total Bilirubin 0.5 (0.3-1.0) mg/dL Direct Bilirubin 0.0 (0.0-0.2) mg/dL AST 23 (13-39) Units/L ALT 13 (7-52) Units/L Alkaline Phosphatase 40 (34-104) Units/L Albumin 3.5 (3.5-5.7) g/dL - ABG Interpretation ABG results: PT/INR, D-dimer PT 11.9 Seconds (9.4-12.1) 06/12/17 14:19 Consult Discharge Plan - Plan [facility]errals: [facility]Primary Care Provider[facility] - Jose Hu [Family Provider] -
[2017-06-13] MEDS: Insulin LISPRO 300 UNITS/3 ML VIAL SQ SCH (17:50)
[2017-06-13] MEDS: Pantoprazole 40 MG VIAL IVP SCH (18:52)
[2017-06-13] MEDS: Thiamine (B-1) 100 MG, Folic Acid 1 MG, MVI, adult with vitamin K 10 ML in 0.9 % Sodi... IVPB SCH (18:52)
[2017-06-14] MEDS: Pantoprazole 40 MG VIAL IVP SCH (05:10)
[2017-06-14] MEDS ORDERED: *HR* Enoxaparin 40 MG/0.4 ML SYRINGE SQ SCH (06:00)
[2017-06-14 07:03] LABS: Basophils % 0.4 %; Eosinophils # 0.1 K/mcL (0.0-0.6); Eosinophils % 0.9 %; Hematocrit 28.1 % (37.5-50.1); Hemoglobin 9.5 g/dL (12.9-16.9); Immature Granulocytes % 0.2 % (0-4); Lymphocytes # 1.3 K/mcL (0.6-4.6); Lymphocytes % 23.8 %; Mean Corpuscular HGB Conc 33.8 g/dL (31.6-35.5); Mean Corpuscular Hemoglobin 29.9 pg (28.0-33.3); Mean Corpuscular Volume 88.4 fL (83.0-100.0); Monocytes % 18.4 %; Neutrophils # 3.2 K/mcL (1.6-8.9); Platelet Count 163 K/mcL (140-400); Red Blood Count 3.18 M/mcL (4.19-5.50); Red Cell Distribution Width 13.6 % (11.5-14.5); Segmented Neutrophils % 56.3 %
[2017-06-14 07:07] LABS: Platelet Estimate Normal (Normal)
[2017-06-14 07:22] LABS: BUN/Creatinine Ratio 18 (6-26); Blood Urea Nitrogen 18 mg/dL (8-23); Carbon Dioxide 23 mEq/L (23-29); Chloride 108 mEq/L (98-107); Glucose 108 mg/dL (70-105); Osmolality,Calculated 292 (280-300); Potassium 3.3 mEq/L (3.5-5.1); Sodium 140 mEq/L (136-145); eGFR For African Americans > 60 (> 60); eGFR For Non-African Americans > 60 (> 60)
[2017-06-14 08:19] VITALS: BP 138/78
[2017-06-14] MEDS: Insulin LISPRO 300 UNITS/3 ML VIAL SQ SCH (08:25)
[2017-06-14] MEDS: 0.9 % Sodium Chloride 1,000 ML IVC SCH ×2 (08:25→09:13)
[2017-06-14] MEDS: Aspirin Enteric Coated 81 MG Tablet PO SCH (09:12)
[2017-06-14] MEDS: Thiamine (B-1) 100 MG TABLET PO SCH (09:12)
[2017-06-14] MEDS: Folic Acid 1 MG TABLET PO SCH (09:12)
--- NOTE | 2017-06-14 10:22 | Discharge Summary ---
- NOTES TO OUTPATIENT PROVIDER Notes to Outpatient Provider: Follow-up with primary care physician within the next 7 days. Follow-up with gastroenterology to schedule an endoscopy as outpatient. Continue omeprazole. Avoid drinking alcohol. Continue Over-the- counter multivitamins Orders not resulted at time of discharge: Pending orders 06/13/17 15:34 Fecal Hemoccult [Occult Blood,Stool] [BF] Routine Date of Encounter: 06/14/17 Time of Encounter: 10:20 - Discharge Diagnosis (1) Alcohol abuse Priority: Primary Status: Acute Assessment and Plan: alcohol intoxication leading to syncope - alcohol level elevated (2) Altered mental status Priority: Primary Status: Acute Assessment and Plan: Acute encephalopathy/toxic 2/2 alcohol intoxication Qualifiers: Altered mental status type: somnolence Qualified Code(s): R40.0 - Somnolence (3) Lactic acidosis Priority: Primary Status: Acute Assessment and Plan: suspect related alcoholic intoxication (4) Acute kidney injury Priority: Primary Status: Acute Assessment and Plan: likely 2/2 dehydration (5) HTN (hypertension) Priority: Secondary Status: Acute Qualifiers: Hypertension type: essential hypertension Qualified Code(s): I10 - Essential (primary) hypertension (6) DMII (diabetes mellitus, type 2) Priority: Secondary Status: Acute Qualifiers: Diabetes mellitus terminal gauger supervisor insulin use: without penitentiary use Diabetes mellitus complication status: without complication Qualified Code(s): E11.9 - Type 2 diabetes mellitus without complications (7) Esophagitis Priority: Secondary Status: Acute Assessment and Plan: Possible esophagitis alcohol related CT scan of the chest showed:1. No acute pulmonary abnormality. 2. Coronary artery disease. 3. Mild thickening of the distal esophagus and asymmetric thickening of the GE junction follow-up as an outpatient (8) Anemia Priority: Secondary Status: Acute Assessment and Plan: Possibly related to dilution Qualifiers: Anemia type: iron deficiency Iron deficiency anemia type: other iron deficiency Qualified Code(s): D50.8 - Other iron deficiency anemias Hospital course: Mr. Barber is a 66 year old male with history of alcoholism, hypertension, diabetes type 2 on oral meds, dementia who presented with syncope episode while intoxicated with alcohol. He had been arrested the day prior of admission for being drunk and disorderly, was [place] [facility] [facility] he apparently had a syncopal episode. There was no collateral history and history was obtained through ED report. In the ER he was found to have elevated lactate in the setting of high alcohol levels. He denies any abdominal pain and apparently feels well. He lives with his sisters at home. His creatinine upon admission was 1.94, today is 0.98. EKG personally reviewed with rate of 84, normal sinus rhythm CT scan of the abdomen showed: Colonic diverticulosis. Equivocal findings of inflammation adjacent to sigmoid colon could represent early diverticulitis. Hepatic steatosis. Nonobstructing nephrolithiasis. Small hiatal hernia with mild thickening of the distal esophagus, possibly reflecting esophagitis. No evidence of sepsis or acute diverticulitis. The patient's lactic acid was 5 , improved without antibiotics. The patient's family mentioned that he has been battling dementia for years and he is back to his baseline. He usually is not oriented in time or place. During his hospitalization he received Librium to avoid withdrawal. Family was recommended to follow-up with GI to schedule an endoscopy as a CT scan showed also thickening of the esophagus which could represent esophagitis but also a malignancy. The patient refused to have a GI evaluation during this hospitalization. - Time Spent with Patient Total time spent providing and/or coordinating discharge services: Greater than 30 minutes (40 min) - Discharge Medications Prescriptions: Omeprazole [PriLOSEC] 40 mg PO DAILY #30 cap Home Medications: Amlodipine Besylate 10 mg PO DAILY 06/12/17 [History] Aspirin [Lo-Dose Aspirin EC] 81 mg PO DAILY 06/12/17 [History] Atorvastatin Calcium [Lipitor] 20 mg PO QPM 06/12/17 [History] Losartan Potassium [Cozaar] 100 mg PO DAILY 06/12/17 [History] Nitroglycerin [Nitrostat] 0.4 mg SL Q5M PRN 06/12/17 [History] hydroCHLOROthiazide [Hydrochlorothiazide] 25 mg PO DAILY 06/12/17 [History] Omeprazole [PriLOSEC] 40 mg PO DAILY #30 cap 06/14/17 [Rx] Allergies/Adverse Reactions: 3 Allergy/AdvReac Type Severity Reaction Status Date / Time No Known Allergies Allergy Verified 06/12/17 13:26 Date of admission: 06/12/17 18:51 [facility] care physician: [facility] Consults: 06/13/17 15:35 Consult to Physical Therapy [CONS] Routine Comment: Evaluate, develop and implement POC Reason for Consult: eval Does patient have active BEDREST order?: No Is patient medically & hemodynamically stable?: Yes Patient assessed for mobility or mobilized this visit?: Yes - Constitutional Vitals: Temp Pulse Resp BP Pulse Ox 97.9 F 62 14 138/78 98 06/14/17 07:42 06/14/17 07:42 06/14/17 07:42 06/14/17 07:42 06/14/17 07:42 General appearance: Present: A&O X 2 - Head Head exam: Present: atraumatic, normocephalic - Eye Eye exam: Present: PERRL, conjuntiva pink, sclera anicteric Pupils: Present: PERRL - Neck Neck exam general surgery: Present: supple, trachea midline. Absent: lymphadenopathy - Respiratory Respiratory exam: Present: CTAB. Absent: accessory muscle use, rales, rhonchi, wheezes - Cardiovascular Cardiovascular exam: Present: RRR, +S1, +S2. Absent: diastolic murmur, gallop, rubs, systolic murmur - GI/Abdominal GI/Abdominal exam: Present: normal bowel sounds, soft, no peritoneal signs. Absent: distended, tenderness - Extremities Exam Extremities exam: Present: warm, radial pulses palpable and symmetrical. Absent : calf tenderness, cyanotic, pedal edema - Neurological Exam Neurological exam: Present: CN II-XII intact, no focal deficits. Absent: oriented X3, pronater drift, facial droop, speech deficit - Skin Skin exam: Present: dry, intact - Patient Status Disposition: Home Health Service Condition: Fair Overall status at discharge: patient is progressing back to baseline - Discharge Instructions Follow Up With: [facility] [Primary Care Provider[facility] - Jose Hu [Family Provider] - - Diet and Activity Activity: resume usual activities as tolerated Diet: low fat, low cholesterol
--- NOTE | 2017-06-14 10:30 | Physician Discharge Referral ---
Home Health/Hosp Referral Info Transfer to: Home Health Provider in Charge Post Discharge: PCP - Diagnosis (1) Alcohol abuse Status: Acute (2) Altered mental status Status: Acute (3) Lactic acidosis Status: Acute (4) Acute kidney injury Status: Acute (5) HTN (hypertension) Status: Acute (6) DMII (diabetes mellitus, type 2) Status: Acute (7) Esophagitis Status: Acute (8) Anemia Status: Acute - Respiratory Orders Smoking Cessation: Smoking cessation has been advised. For more information, call the [place] Tobacco Quit Line at 4-644-TVGK-NOW. - Diet/Nutrition Diet/Nutrition Orders: No Added Salt (MATILDA) - Services Needed Following services are medically necessary services: Home Health Aide, Physical Therapy, Occupational Therapy Home Care Orders: Follow-up with primary care physician within the next 7 days. Follow-up with gastroenterology to schedule an endoscopy as outpatient. Continue omeprazole. Avoid drinking alcohol. Continue [id number] multivitamins - Transfer Medications Prescriptions: Omeprazole [PriLOSEC] 40 mg PO DAILY #30 cap Home Medications: Amlodipine Besylate 10 mg PO DAILY 06/12/17 [History] Aspirin [Lo-Dose Aspirin EC] 81 mg PO DAILY 06/12/17 [History] Atorvastatin Calcium [Lipitor] 20 mg PO QPM 06/12/17 [History] Losartan Potassium [Cozaar] 100 mg PO DAILY 06/12/17 [History] Nitroglycerin [Nitrostat] 0.4 mg SL Q5M PRN 06/12/17 [History] hydroCHLOROthiazide [Hydrochlorothiazide] 25 mg PO DAILY 06/12/17 [History] Omeprazole [PriLOSEC] 40 mg PO DAILY #30 cap 06/14/17 [Rx] Allergies/Adverse Reactions: 3 Allergy/AdvReac Type Severity Reaction Status Date / Time No Known Allergies Allergy Verified 06/12/17 13:26 Certification: Further, I certify that my clinical findings support that this patient is homebound (i.e. absences from home require considerable and taxing effort and are for medical reasons or mosque services or infrequently or short duration when for other reasons) because: Homebound Reason: Patient requires assistance of a person or device to safely leave home Attestation: My signature below is to certify that this patient is under my care and that I, or nurse practitioner, or a physician's escrow assistant working with me, has a face-to -face encounter with this patient.
== END 2017-06-14 10:45 | disposition home health service (06) | DRG 312 ==
LOC: 2ANU 13:21 → EMEROO 13:21 → 2ANU 18:43
PROVIDERS: ADMIT Internal Medicine; ATTEND Internal Medicine

== ENCOUNTER 2017-07-16 16:03 | Observation (INO) ==
--- NOTE | 2017-07-16 16:07 | Emergency Department Note ---
Disposition Clinical Impression: Syncope, Acute kidney failure Disposition: Admitted As Inpatient General Adult [facility] - General Chief complaint: ED Weakness Stated complaint: Near Syncopal Episode Time Seen by Provider: 07/16/17 16:05 - Related Data Home Medications Medication Instructions Recorded Confirmed Amlodipine Besylate 10 mg PO DAILY 06/12/17 07/16/17 Aspirin [Lo-Dose Aspirin EC] 81 mg PO DAILY 06/12/17 07/16/17 Atorvastatin Calcium [Lipitor] 20 mg PO QPM 06/12/17 07/16/17 Losartan Potassium [Cozaar] 100 mg PO DAILY 06/12/17 07/16/17 Nitroglycerin [Nitrostat] 0.4 mg SL Q5M PRN 06/12/17 07/16/17 hydroCHLOROthiazide 25 mg PO DAILY 06/12/17 07/16/17 [Hydrochlorothiazide] Previous Rx's Medication Instructions Recorded Omeprazole [PriLOSEC] 40 mg PO DAILY #30 cap 06/14/17 Allergies Allergy/AdvReac Type Severity Reaction Status Date / Time No Known Allergies Allergy Verified 07/16/17 16:57 Past Medical History - Past Medical History Medical history: Reports: coronary artery disease, dementia, diabetes, hyperlipidemia, hypertension - Social History Smoking Status: Never smoker Smokeless Tobacco Status: No Alcohol use: Reports: heavy Drug use: Reports: none Course Vital Signs Temperature 98.4 F 07/16/17 16:05 Pulse Rate 89 07/16/17 16:05 Respiratory Rate 18 07/16/17 16:05 Blood Pressure 138/67 07/16/17 16:05 O2 Sat by Pulse Oximetry 99 07/16/17 16:05 Temperature 98.2 F 07/16/17 22:59 Pulse Rate 81 07/16/17 22:59 Respiratory Rate 16 07/16/17 22:59 Blood Pressure 147/69 07/16/17 22:59 O2 Sat by Pulse Oximetry 99 07/16/17 22:59 Oxygen Delivery Oxygen Delivery Room Air Medical Decision Making - Lab Data Result diagrams: 07/16/17 16:26 07/16/17 16:26 Lab Results 07/16/17 07/16/17 07/16/17 Range/Units 16:26 16:26 16:26 WBC 7.5 (4.3-11.1) K/mcL RBC 3.48 L (4.19-5.50) M/mcL Hgb 11.0 L (12.9-16.9) g/dL Hct 31.6 L (37.5-50.1) % MCV 90.8 (83.0-100.0) fL MCH 31.6 (28.0-33.3) pg MCHC 34.8 (31.6-35.5) g/dL RDW 14.9 H (11.5-14.5) % Plt Count 217 (140-400) K/mcL MPV 9.9 (9.4-12.4) fL Immature Gran % 0.4 (0-4) % Seg Neutrophils % 84.2 % Lymphocytes % 7.5 % Monocytes % 7.2 % Eosinophils % 0.3 % Basophils % 0.4 % Neutrophils # 6.3 (1.6-8.9) K/mcL Lymphocytes # 0.6 (0.6-4.6) K/mcL Monocytes # 0.5 (0.0-1.3) K/mcL Eosinophils # 0.0 (0.0-0.6) K/mcL Basophils # 0.0 (0.0-0.2) K/mcL Sodium 140 (136-145) mEq/L Potassium 4.9 (3.5-5.1) mEq/L Chloride 106 (98-107) mEq/L Carbon Dioxide 22 L (23-29) mEq/L BUN 26 H (8-23) mg/dL Creatinine 1.51 H (0.70-1.30) mg/dL Est GFR ( Amer) 56 L (> 60) Est GFR (Non-Af Amer) 46 L (> 60) BUN/Creatinine Ratio 17 (6-26) Glucose 199 H (70-105) mg/dL Calculated Osmolality 300 (280-300) Calcium 9.7 (8.6-10.3) mg/dL Total Bilirubin 0.4 (0.3-1.0) mg/dL AST 50 H (13-39) Units/L ALT 29 (7-52) Units/L Alkaline Phosphatase 41 (34-104) Units/L Troponin I < 0.03 (< 0.04) ng/mL B-Natriuretic Peptide 34 (Less than 100) pg/mL Serum Total Protein 7.6 (6.4-8.9) g/dL Albumin 4.3 (3.5-5.7) g/dL Globulin 3.3 (2.4-3.5) g/dL Albumin/Globulin Ratio 1.3 (1.1-2.2) TSH 0.948 (0.340-5.600) mcIU/mL Urine Color (Yellow) Urine Clarity (Clear) Urine pH (5.0-8.0) pH Units Ur Specific [place] (1.010-1.025) Urine Protein (Neg-Trace) mg/dL Urine Glucose (UA) (Normal) mg/dL Urine Ketones (Negative) mg/dL Urine Blood (Negative) Urine Nitrite (Negative) Urine Bilirubin (Negative) Urine Urobilinogen (Normal) mg/dL Ur Leukocyte Esterase (Negative) Urine Microscopic RBC (0-3) per hpf Urine Microscopic WBC (0-3) per hpf Ur Squamous Epith Cells (None-Few) per lpf Urine Bacteria (None-Few) per hpf Hyaline Casts (None-Few) per lpf Ur Culture Indicated? (NO) 07/16/17 Range/Units 17:36 WBC (4.3-11.1) K/mcL RBC (4.19-5.50) M/mcL Hgb (12.9-16.9) g/dL Hct (37.5-50.1) % MCV (83.0-100.0) fL MCH (28.0-33.3) pg MCHC (31.6-35.5) g/dL RDW (11.5-14.5) % Plt Count (140-400) K/mcL MPV (9.4-12.4) fL Immature Gran % (0-4) % Seg Neutrophils % % Lymphocytes % % Monocytes % % Eosinophils % % Basophils % % Neutrophils # (1.6-8.9) K/mcL Lymphocytes # (0.6-4.6) K/mcL Monocytes # (0.0-1.3) K/mcL Eosinophils # (0.0-0.6) K/mcL Basophils # (0.0-0.2) K/mcL Sodium (136-145) mEq/L Potassium (3.5-5.1) mEq/L Chloride (98-107) mEq/L Carbon Dioxide (23-29) mEq/L BUN (8-23) mg/dL Creatinine (0.70-1.30) mg/dL Est GFR ( Amer) (> 60) Est GFR (Non-Af Amer) (> 60) BUN/Creatinine Ratio (6-26) Glucose (70-105) mg/dL Calculated Osmolality (280-300) Calcium (8.6-10.3) mg/dL Total Bilirubin (0.3-1.0) mg/dL AST (13-39) Units/L ALT (7-52) Units/L Alkaline Phosphatase (34-104) Units/L Troponin I (< 0.04) ng/mL B-Natriuretic Peptide (Less than 100) pg/mL Serum Total Protein (6.4-8.9) g/dL Albumin (3.5-5.7) g/dL Globulin (2.4-3.5) g/dL Albumin/Globulin Ratio (1.1-2.2) TSH (0.340-5.600) mcIU/mL Urine Color Yellow (Yellow) Urine Clarity Clear (Clear) Urine pH 6.0 (5.0-8.0) pH Units Ur Specific [place] 1.018 (1.010-1.025) Urine Protein 30 H (Neg-Trace) mg/dL Urine Glucose (UA) 250 H (Normal) mg/dL Urine Ketones Negative (Negative) mg/dL Urine Blood Negative (Negative) Urine Nitrite Negative (Negative) Urine Bilirubin Negative (Negative) Urine Urobilinogen Normal (Normal) mg/dL Ur Leukocyte Esterase Negative (Negative) Urine Microscopic RBC 5-15 H (0-3) per hpf Urine Microscopic WBC 0-3 (0-3) per hpf Ur Squamous Epith Cells Moderate H (None-Few) per lpf Urine Bacteria None Seen (None-Few) per hpf Hyaline Casts Few (None-Few) per lpf Ur Culture Indicated? NO (NO) Attestation Statement - Attestation Attestation: I examined this patient and my medical decision-making was reviewed with the Resident Physician. I agree with the documented findings, disposition and treatment plan as described except to the extent set forth below. [id number] time provided Patient arrives by embolus from home. He had a witnessed near syncopal event. Patient states he remembers all events and did not completely lose consciousness. He does not appear in any acute distress on arrival. He was evaluated in conjunction with the resident physician Dr. Wan
[2017-07-16] MEDS ORDERED: 0.9 % Sodium Chloride 500 ML IVC ONE (16:14)
--- NOTE | 2017-07-16 16:17 | Emergency Department Note ---
Disposition Clinical Impression: Syncope Qualifiers: Syncope type: unspecified Qualified Code(s): R55 - Syncope and collapse Acute kidney failure Qualifiers: Acute renal failure type: unspecified Qualified Code(s): N17.9 - Acute kidney failure, unspecified Disposition: Admitted As Inpatient [facility] [Primary Care Provider[facility] - Jose Hu [Family Provider] - Forms: ED Satisfaction Letter General Adult HPI - General Chief complaint: ED Weakness Stated complaint: Near Syncopal Episode Time Seen by Provider: 07/16/17 16:05 Source: EMS Mode of arrival: ambulatory Limitations: no limitations Nursing Notes Reviewed: Yes Vital Signs Reviewed: Yes - History of Present Illness HPI Narrative: 66-year-old male with history of dementia presents for evaluation of near syncopal episode. Patient's history was provided via EMS via family. States the patient was walking to the bank and then returned. Patient states that he felt like use can a pass out. Patient felt heart palpitations. Patient sat down. Patient's symptoms did not immediately resolve. Denies any chest pain or shortness of breath. EMS reported the patient's family did give him 1 sublingual nitroglycerin. Patient denies history of heart attacks. Denies any recent changes in medications. Patient denies a nausea vomiting. No abdominal pain. Patient denies any shortness of breath currently. Pain Scale: 0 - Related Data Home Medications Medication Instructions Recorded Confirmed Amlodipine Besylate 10 mg PO DAILY 06/12/17 07/16/17 Aspirin [Lo-Dose Aspirin EC] 81 mg PO DAILY 06/12/17 07/16/17 Atorvastatin Calcium [Lipitor] 20 mg PO QPM 06/12/17 07/16/17 Losartan Potassium [Cozaar] 100 mg PO DAILY 06/12/17 07/16/17 Nitroglycerin [Nitrostat] 0.4 mg SL Q5M PRN 06/12/17 07/16/17 hydroCHLOROthiazide 25 mg PO DAILY 06/12/17 07/16/17 [Hydrochlorothiazide] Previous Rx's Medication Instructions Recorded Omeprazole [PriLOSEC] 40 mg PO DAILY #30 cap 06/14/17 Allergies Allergy/AdvReac Type Severity Reaction Status Date / Time No Known Allergies Allergy Verified 07/16/17 16:57 All systems ED: reviewed and negative except as stated. Constitutional: Denies: fever Cardiovascular: Reports: palpitations. Denies: chest pain Respiratory: Reports: dyspnea. Denies: cough Gastrointestinal: Denies: abdominal pain, nausea, vomiting Past Medical History - Past Medical History Source: patient, old records reviewed Medical history: Reports: coronary artery disease, dementia, diabetes, hyperlipidemia, hypertension - Social History Smoking Status: Never smoker Smokeless Tobacco Status: No Alcohol use: Reports: heavy Drug use: Reports: none Physical Exam - General Limitations: no limitations General appearance: alert, in no apparent distress - Head Head exam: atraumatic, normocephalic, normal inspection - Eye Eye exam: Present: normal appearance, PERRL, EOMI - ENT ENT exam: normal exam - Neck Neck exam: Present: normal inspection - Chest Chest inspection: Present: normal inspection, symmetric chest wall rise - Respiratory Respiratory exam: Present: normal lung sounds bilaterally. Absent: respiratory distress - Cardiovascular Cardiovascular exam: Present: regular rate, normal rhythm. Absent: systolic murmur - Abdominal Exam Abdominal exam: Present: soft - Extremities Exam Extremities exam: Present: normal inspection - Expanded Lower Extremity Exam Neurovascular/Tendon exam: Present: normal capillary refill - Back Exam Back exam: Present: normal inspection - Neurological Exam Neurological exam: Present: alert, CN II-XII intact - Skin Skin exam: Present: warm, dry, intact, normal color Course Course Narrative: Patient seen and examined. Patient does have a history of dementia. Patient is a poor historian. Medication list reviewed. Patient will get basic cardiopulmonary screening evaluation with EKG, chest x-ray urinalysis. Patient' s vitals are stable. - Reevaluation(s) Reevaluation #1: Patient seen and examined. Patient's sister at bedside states that the patient did have a witnessed syncopal episode where her eyes rolled back of his head. Resolved spontaneously. Time: 17:22 Vital Signs Temperature 98.4 F 07/16/17 16:05 Pulse Rate 89 07/16/17 16:05 Respiratory Rate 18 07/16/17 16:05 Blood Pressure 138/67 07/16/17 16:05 O2 Sat by Pulse Oximetry 99 07/16/17 16:05 Temperature 98.4 F 07/16/17 16:05 Pulse Rate 89 07/16/17 16:05 Respiratory Rate 18 07/16/17 16:05 Blood Pressure 138/67 07/16/17 16:05 O2 Sat by Pulse Oximetry 99 07/16/17 16:05 Oxygen Delivery Oxygen Delivery Room Air Medical Decision Making - MDM Narrative Medical decision making narrative: 66-year-old male with history of dementia presents for evaluation of syncope/ nursing to be. This was witnessed by the family. Patient's eyes appeared to roll back of the head. No seizure-like activity noted. Patient felt heart palpitations prior to. Denied chest pain. Patient does have a history of dementia which appears to be at baseline per family. Patient's poor historian. Patient had basic cardiopulmonary screening evaluation was noted have a slightly elevated kidney function. Patient's chest x-ray, EKG and troponin were unremarkable. Given the patient's age comorbidities as well as witnessed syncopal episode the patient be admitted for monitoring and further evaluation. Patient's kidney function is likely prerenal. Patient was given gradual fluid bolus. - Lab Data Lab results reviewed: Yes I reviewed the patient's lab results. Result diagrams: 07/16/17 16:26 07/16/17 16:26 Lab Results 07/16/17 07/16/17 07/16/17 Range/Units 16:26 16:26 16:26 WBC 7.5 (4.3-11.1) K/mcL RBC 3.48 L (4.19-5.50) M/mcL Hgb 11.0 L (12.9-16.9) g/dL Hct 31.6 L (37.5-50.1) % MCV 90.8 (83.0-100.0) fL MCH 31.6 (28.0-33.3) pg MCHC 34.8 (31.6-35.5) g/dL RDW 14.9 H (11.5-14.5) % Plt Count 217 (140-400) K/mcL MPV 9.9 (9.4-12.4) fL Immature Gran % 0.4 (0-4) % Seg Neutrophils % 84.2 % Lymphocytes % 7.5 % Monocytes % 7.2 % Eosinophils % 0.3 % Basophils % 0.4 % Neutrophils # 6.3 (1.6-8.9) K/mcL Lymphocytes # 0.6 (0.6-4.6) K/mcL Monocytes # 0.5 (0.0-1.3) K/mcL Eosinophils # 0.0 (0.0-0.6) K/mcL Basophils # 0.0 (0.0-0.2) K/mcL Sodium 140 (136-145) mEq/L Potassium 4.9 (3.5-5.1) mEq/L Chloride 106 (98-107) mEq/L Carbon Dioxide 22 L (23-29) mEq/L BUN 26 H (8-23) mg/dL Creatinine 1.51 H (0.70-1.30) mg/dL Est GFR ( Amer) 56 L (> 60) Est GFR (Non-Af Amer) 46 L (> 60) BUN/Creatinine Ratio 17 (6-26) Glucose 199 H (70-105) mg/dL Calculated Osmolality 300 (280-300) Calcium 9.7 (8.6-10.3) mg/dL Total Bilirubin 0.4 (0.3-1.0) mg/dL AST 50 H (13-39) Units/L ALT 29 (7-52) Units/L Alkaline Phosphatase 41 (34-104) Units/L Troponin I < 0.03 (< 0.04) ng/mL B-Natriuretic Peptide 34 (Less than 100) pg/mL Serum Total Protein 7.6 (6.4-8.9) g/dL Albumin 4.3 (3.5-5.7) g/dL Globulin 3.3 (2.4-3.5) g/dL Albumin/Globulin Ratio 1.3 (1.1-2.2) - Radiology Data Radiology results reviewed: Yes I reviewed the patient's radiology results. Chest X-Ray 07/16/17 16:13 IMPRESSION: No acute findings. D/ / Zelda Langston MD / Zelda Langston MD Interpreting Provider: Zelda Langston MD - EKG Data EKG #1 EKG shows normal: sinus rhythm Rate: normal Rhythm: NSR [place]/QRS: normal Interpretation: no acute changes S.B.A.R. - S.B.A.R. Situation: Demographics Background: Presenting Complaint Assessment: Vital Signs, Course and respsone to treatment, Patient/Family Expectation Recommendation: Barrier(s) to disposition, Recommendation based on pending studies, treatments, or consults Poli Report Given to: Dr. Han Ashton Repor Time: 17:41
[2017-07-16 16:54] LABS: Basophils % 0.4 %; Eosinophils % 0.3 %; Hematocrit 31.6 % (37.5-50.1); Immature Granulocytes % 0.4 % (0-4); Lymphocytes # 0.6 K/mcL (0.6-4.6); Lymphocytes % 7.5 %; Mean Corpuscular HGB Conc 34.8 g/dL (31.6-35.5); Mean Corpuscular Hemoglobin 31.6 pg (28.0-33.3); Mean Corpuscular Volume 90.8 fL (83.0-100.0); Mean Platelet Volume 9.9 fL (9.4-12.4); Monocytes # 0.5 K/mcL (0.0-1.3); Monocytes % 7.2 %; Neutrophils # 6.3 K/mcL (1.6-8.9); Platelet Count 217 K/mcL (140-400); Red Blood Count 3.48 M/mcL (4.19-5.50); Red Cell Distribution Width 14.9 % (11.5-14.5); Segmented Neutrophils % 84.2 %
[2017-07-16 17:06] LABS: Alanine Aminotransferase 29 Units/L (7-52); Albumin 4.3 g/dL (3.5-5.7); Albumin/Globulin Ratio 1.3 (1.1-2.2); Alkaline Phosphatase 41 Units/L (34-104); Aspartate Amino Transferase 50 Units/L (13-39); BUN/Creatinine Ratio 17 (6-26); Bilirubin,Total 0.4 mg/dL (0.3-1.0); Blood Urea Nitrogen 26 mg/dL (8-23); Calcium 9.7 mg/dL (8.6-10.3); Carbon Dioxide 22 mEq/L (23-29); Chloride 106 mEq/L (98-107); Globulin 3.3 g/dL (2.4-3.5); Glucose 199 mg/dL (70-105); Osmolality,Calculated 300 (280-300); Potassium 4.9 mEq/L (3.5-5.1); Sodium 140 mEq/L (136-145); Total Protein 7.6 g/dL (6.4-8.9); eGFR For African Americans 56 (> 60); eGFR For Non-African Americans 46 (> 60)
[2017-07-16 17:07] LABS: Troponin I < 0.03 ng/mL (< 0.04)
[2017-07-16 18:13] LABS: Bilirubin,Urine Negative (Negative); Blood,Urine Negative (Negative); Clarity,Urine Clear (Clear); Color,Urine Yellow (Yellow); Glucose,Urine (UA) 250 mg/dL (Normal); Ketones,Urine Negative (Negative); Leukocyte Esterase,Urine Negative (Negative); Nitrite,Urine Negative (Negative); Protein,Urine 30 mg/dL (Neg-Trace); Specific Gravity,Urine 1.018 (1.010-1.025); Urobilinogen,Urine Normal (Normal)
[2017-07-16 18:15] LABS: Bacteria,Urine None Seen per hpf (None-Few); Hyaline Casts,Urine Few per lpf (None-Few); Squamous Epithelial Cell,Urine Moderate per lpf (None-Few); WBC,Urine 0-3 per hpf (0-3)
[2017-07-16] MEDS ORDERED: Acetaminophen 325 MG TABLET PO PRN (19:39)
[2017-07-16] MEDS ORDERED: Naloxone 0.4 MG/ML INJ IVP PRN (19:39)
--- NOTE | 2017-07-16 19:45 | Internal Med History&Physical ---
Date of Encounter: 07/16/17 Time of Encounter: 19:42 Internal Medicine - H&P: HPI Chief complaint: near syncope Admitted From: Emergency Dept Plans for Post Hospital Care: Home History of present illness: Mr. Barber is a 66 year old male with history of alcoholism, hypertension, diabetes type 2, alcoholism who presented with a near syncopal episode. He arrived via EMS from home saying that he was walking out of the bank when he felt palpitations, chest tightness, and nearly passed out. [place] slight dizziness. No Loc. No real chest pain or shortness of breath. Did get a little diaphoretic. He says he "feels different". Currently asymptomatic. family gave him one sublingual nitro which relieved the tightness. Denies blurry vision, headache, nausea, vomiting, shortness breath, abdominal pain, diarrhea, constipation, urinary symptoms, or other neurological symptoms. In the ED workup was mostly significant for elevated kidney function compared to baseline. EKG with no acute ischemic changes and troponins were not elevated. The patient was hemodynamically stable in the ED. He was given a liter normal saline bolus in the ED. Past Med Surg Social Fam HX - Past Medical History Medical history: coronary artery disease, dementia, diabetes, hyperlipidemia, hypertension Additional medical history: diverticulosis - Social History Smoking Status: Never smoker Smokeless Tobacco Status: No Alcohol use: heavy Drug use: none - Family History Sister Hx Family Cardiac Disorders: Yes Hx Family Endocrine Disorder: Yes Father Hx Family Cardiac Disorders: Yes (HTN) Brother Living Status: Hx Family Cardiac Disorders: Yes (HTN) Internal Medicine - H&P: Meds Amlodipine Besylate 10 mg PO DAILY 06/12/17 [History] Aspirin [Lo-Dose Aspirin EC] 81 mg PO DAILY 06/12/17 [History] Atorvastatin Calcium [Lipitor] 20 mg PO QPM 06/12/17 [History] Losartan Potassium [Cozaar] 100 mg PO DAILY 06/12/17 [History] Nitroglycerin [Nitrostat] 0.4 mg SL Q5M PRN 06/12/17 [History] hydroCHLOROthiazide [Hydrochlorothiazide] 25 mg PO DAILY 06/12/17 [History] Omeprazole [PriLOSEC] 40 mg PO DAILY #30 cap 06/14/17 [Rx] 3 Allergy/AdvReac Type Severity Reaction Status Date / Time No Known Allergies Allergy Verified 07/16/17 16:57 All Systems PM: A 10-system review of systems was performed and is negative for pertinent findings except as documented above in the HPI. Review of systems: All systems reviewed are negative except for as mentioned above - Constitutional Vitals: Temp Pulse Resp BP Pulse Ox 98.4 F 89 18 138/67 99 07/16/17 16:05 07/16/17 16:05 07/16/17 16:05 07/16/17 16:07/16/17 16:05 Exam: GEN: NAD HEENT: AT, NC, No cyanosis, oral mucosa is moist, No JVD Lymphatics: No lymphadenoapthy Eyes: Extrocular muscles intact, anicteric CVS:RRR. S1, S2, No m/r/g RESP: CTAB ABD: Soft, NT, ND, +BS EXT: No edema, No rashes, 2+ DP NEURO: Nonfocal, CN II-XII intact, No focal motor or sensory deficits Psych: Cooperative, Not anxious or depressed Internal Med - H&P Results - Labs CBC & Chem 7: 07/16/17 16:26 07/16/17 16:26 Labs: Short CBC 07/16/17 Range/Units 16:26 WBC 7.5 (4.3-11.1) K/mcL Hgb 11.0 L (12.9-16.9) g/dL Hct 31.6 L (37.5-50.1) % Plt Count 217 (140-400) K/mcL Neutrophils # 6.3 (1.6-8.9) K/mcL BMP 07/16/17 16:26 Sodium 140 Potassium 4.9 Chloride 106 Carbon Dioxide 22 L BUN 26 H Creatinine 1.51 H Glucose 199 H Calcium 9.7 Cardiac Enzymes 07/16/17 Range/Units 16:26 Troponin I < 0.03 (< 0.04) ng/mL Liver Function 07/16/17 Range/Units 16:26 Total Bilirubin 0.4 (0.3-1.0) mg/dL AST 50 H (13-39) Units/L ALT 29 (7-52) Units/L Alkaline Phosphatase 41 (34-104) Units/L Albumin 4.3 (3.5-5.7) g/dL Urine 07/16/17 Range/Units 17:36 Urine Color Yellow (Yellow) Urine Clarity Clear (Clear) Urine pH 6.0 (5.0-8.0) pH Units Ur Specific [place] 1.018 (1.010-1.025) Urine Protein 30 H (Neg-Trace) mg/dL Urine Glucose (UA) 250 H (Normal) mg/dL - Impressions ITS Impressions Chest X-Ray 07/16/17 16:13 IMPRESSION: No acute findings. D/ / eZlda Langston MD / Zelda Langston MD Interpreting Provider: Zelda Langston MD - Assessment and plan (1) Near syncope Current Visit: Yes Status: Acute Assessment and plan: Likely from dehydration given his FABIOLA. Will hydrate. Check orthostatics. Telemetry. Will check rest of syncope work up with echo and carotid US. Trend cardiac enzymes. (2) Acute kidney injury Current Visit: No Status: Acute Assessment and plan: Will hydrate with NS. avoid nephrotoxins. (3) HTN (hypertension) Current Visit: No Status: Acute Assessment and plan: Resume home antihypertensives but hold nephrotoxins. Qualifiers: Hypertension type: essential hypertension Qualified Code(s): I10 - Essential (primary) hypertension (4) DMII (diabetes mellitus, type 2) Current Visit: No Status: Acute Assessment and plan: Will place on insulin sliding scale. Accuchecks. Qualifiers: Diabetes mellitus heavy cleaner insulin use: without jail use Diabetes mellitus complication status: without complication Qualified Code(s): E11.9 - Type 2 diabetes mellitus without complications (5) Alcohol abuse Current Visit: No Status: Acute Assessment and plan: Will place on CIWA protocol. start oral vitamin/thiamine/folic acid. (6) DVT prophylaxis Current Visit: Yes Status: Acute Assessment and plan: heparin SQ - Time Spent With Patient Total time spent is greater than 50% in coordination of care (as documented) at patient's floor/unit and/or counseling patient:
[2017-07-16 20:45] LABS: Thyroid Stimulating Hormone 0.948 mcIU/mL (0.340-5.600)
[2017-07-16] MEDS ORDERED: *HR* LORazepam 2 MG/ML VIAL IVP PRN ×3 (22:56)
[2017-07-16] MEDS ORDERED: *HR* Dextrose 50 % in Water (Syg) 50 ML SYRINGE IVP PRN (22:56)
[2017-07-16] MEDS ORDERED: Dextrose Gel 15 GM/37.5 ML TUBE PO PRN ×2 (22:56)
[2017-07-16] MEDS ORDERED: D5% in Water 1,000 ML IVC PRN (22:56)
[2017-07-16] MEDS: 0.9 % Sodium Chloride 1,000 ML IVC SCH (23:06)
[2017-07-16] MEDS: *HR* Heparin 5,000 UNIT/ML VIAL SQ SCH ×2 (23:07)
[2017-07-16] MEDS: Insulin LISPRO 300 UNITS/3 ML VIAL SQ SCH (23:51)
[2017-07-17 05:29] LABS: Basophils % 0.2 %; Eosinophils % 0.2 %; Hematocrit 31.3 % (37.5-50.1); Hemoglobin 10.8 g/dL (12.9-16.9); Immature Granulocytes % 0.5 % (0-4); Lymphocytes # 1.1 K/mcL (0.6-4.6); Mean Corpuscular HGB Conc 34.5 g/dL (31.6-35.5); Mean Corpuscular Hemoglobin 31.3 pg (28.0-33.3); Mean Corpuscular Volume 90.7 fL (83.0-100.0); Mean Platelet Volume 10.3 fL (9.4-12.4); Monocytes % 11.3 %; Neutrophils # 6.5 K/mcL (1.6-8.9); Platelet Count 195 K/mcL (140-400); Red Blood Count 3.45 M/mcL (4.19-5.50); Red Cell Distribution Width 14.9 % (11.5-14.5); Segmented Neutrophils % 74.8 %
[2017-07-17 05:51] LABS: Amylase 53 Units/L (29-103); BUN/Creatinine Ratio 19 (6-26); Blood Urea Nitrogen 22 mg/dL (8-23); Calcium 9.4 mg/dL (8.6-10.3); Carbon Dioxide 24 mEq/L (23-29); Chloride 105 mEq/L (98-107); Glucose 102 mg/dL (70-105); Lipase 129 Units/L (11-82); Magnesium 1.2 mg/dL (1.6-2.6); Osmolality,Calculated 296 (280-300); Potassium 3.8 mEq/L (3.5-5.1); Sodium 141 mEq/L (136-145); Troponin I < 0.03 ng/mL (< 0.04); eGFR For African Americans > 60 (> 60); eGFR For Non-African Americans > 60 (> 60)
[2017-07-17] MEDS: *HR* Heparin 5,000 UNIT/ML VIAL SQ SCH ×6 (06:53→23:05)
[2017-07-17] MEDS: Insulin LISPRO 300 UNITS/3 ML VIAL SQ SCH ×4 (08:07→20:18)
[2017-07-17] MEDS: Aspirin Enteric Coated 81 MG Tablet PO SCH (09:21)
[2017-07-17] MEDS: Thiamine (B-1) 100 MG TABLET PO SCH (09:21)
[2017-07-17] MEDS: Vitamin B Complex/Vit C/Vit E 1 EACH TABLET PO SCH (09:21)
[2017-07-17] MEDS: amLODIPine 5 MG TABLET PO SCH (09:21)
[2017-07-17] MEDS: Folic Acid 1 MG TABLET PO SCH (09:21)
[2017-07-17] MEDS: 0.9 % Sodium Chloride 1,000 ML IVC SCH (11:34)
[2017-07-17] MEDS ORDERED: Lidocaine -MPF 1% 5 ML AMPUL INFILT ONE (17:27)
--- NOTE | 2017-07-17 17:32 | Internal Med Progress Note ---
Date of Encounter: 07/17/17 Time of Encounter: 17:30 - Assessment and plan (1) Near syncope Current Visit: Yes Status: Acute Assessment and plan: Likely from dehydration given his FABIOLA. However, he did have complaints of chest pain during this episode. On eof his sisters who witnessed the event stated that his tightness was relived with nitro. Given his dementia, it is hard to obtain further history on this. Orthostats were positive for HR jumping to 130s. - Rule out ACS; [facility] If no recent stress tests or heart cath , will do stress test. - Continue IV fluid hydration as needed. Now improved hydration. (2) Alcohol abuse Current Visit: No Status: Acute Assessment and plan: Will place on CIWA protocol. start oral vitamin/thiamine/folic acid. (3) Acute kidney injury Current Visit: No Status: Acute Assessment and plan: Resolved after IV fluid hydration. (4) HTN (hypertension) Current Visit: No Status: Acute Assessment and plan: Resume home antihypertensives but hold nephrotoxins. Qualifiers: Hypertension type: essential hypertension Qualified Code(s): I10 - Essential (primary) hypertension (5) DMII (diabetes mellitus, type 2) Current Visit: No Status: Acute Assessment and plan: Insulin sliding scale. Qualifiers: Diabetes mellitus bed bug exterminator insulin use: without bed bug exterminator use Diabetes mellitus complication status: without complication Qualified Code(s): E11.9 - Type 2 diabetes mellitus without complications (6) DVT prophylaxis Current Visit: Yes Status: Acute Assessment and plan: heparin SQ - Time Spent With Patient Total time spent is greater than 50% in coordination of care (as documented) at patient's floor/unit and/or counseling patient: - Subjective Interval history: History limited due to patient dementia. Patient pulled out IV access today Sister is historian who is at bedside Patient denies any chest pain, SOB, dizziness, diaphoresis at this moment. - Constitutional Vitals: Temp Pulse Resp BP Pulse Ox 98.6 F 78 17 138/74 98 07/17/17 15:48 07/17/17 15:48 07/17/17 15:48 07/17/17 15:48 07/17/17 15:48 Exam: GEN: NAD, AAO x2 HEENT: AT, NC, No cyanosis, oral mucosa is moist, No JVD CVS:RRR. S1, S2, No m/r/g RESP: CTAB ABD: Soft, NT, ND, +BS EXT: No edema, No rashes, 2+ DP NEURO: Nonfocal, CN II-XII intact, No focal motor or sensory deficits Internal Medicine: Result - Labs CBC & Chem 7: 07/17/17 04:55 07/17/17 04:55 Labs: Short CBC 07/17/17 Range/Units 04:55 WBC 8.6 (4.3-11.1) K/mcL Hgb 10.8 L (12.9-16.9) g/dL Hct 31.3 L (37.5-50.1) % Plt Count 195 (140-400) K/mcL Neutrophils # 6.5 (1.6-8.9) K/mcL BMP 07/17/17 04:55 Sodium 141 Potassium 3.8 Chloride 105 Carbon Dioxide 24 BUN 22 Creatinine 1.14 Glucose 102 Calcium 9.4 Cardiac Enzymes 07/16/17 07/17/17 Range/Units 22:57 04:55 Troponin I < 0.03 < 0.03 (< 0.04) ng/mL - VTE Documentation of Mechanical Device: Venous foot pump, device Consult Discharge Plan - Plan [facility]errals: [facility] Care Provider[facility] - Jose Hu [Family Provider] -
--- NOTE | 2017-07-17 18:02 | Electrocardiograph Report ---
[address] [place], [place] [address] Test Date: 2017-07-16 Pat Name: Oscar Barber Department: 103 Room: [facility] Gender: M Associate Professor Of Theology: MERCEDES : 1950 Requested By: Srinivasa Wan Order Number: [id number] Reading MD: Casey Caldwell Measurements Intervals [place] Rate: 80 P: 26 ME: 143 QRS: 21 QRSD: 90 T: 48 QT: 364 QTc: 400 Interpretive Statements SINUS RHYTHM ANTEROLATERAL ISCHEMIA Electronically Signed On 07-17-2017 18:01:09 EDT by Casey Caldwell
[2017-07-17] MEDS ORDERED: *HR* LORazepam 2 MG/ML VIAL IVP ONE (19:42)
[2017-07-17] MEDS ORDERED: Haloperidol Lactate 5 MG/ML VIAL IVP ONE (21:40)
[2017-07-17] MEDS ORDERED: diazePAM 10 MG/2 ML SYRINGE IVP ONE (21:41)
[2017-07-17] MEDS ORDERED: Haloperidol Lactate 5 MG/ML VIAL IM ONE (21:59)
[2017-07-18] MEDS: *HR* Heparin 5,000 UNIT/ML VIAL SQ SCH ×4 (06:04→13:24)
[2017-07-18 06:10] LABS: BUN/Creatinine Ratio 16 (6-26); Blood Urea Nitrogen 14 mg/dL (8-23); Carbon Dioxide 24 mEq/L (23-29); Chloride 105 mEq/L (98-107); Glucose 108 mg/dL (70-105); Osmolality,Calculated 293 (280-300); Potassium 3.5 mEq/L (3.5-5.1); Sodium 141 mEq/L (136-145); eGFR For African Americans > 60 (> 60); eGFR For Non-African Americans > 60 (> 60)
[2017-07-18] MEDS ORDERED: Regadenoson 0.4 MG/5 ML SYRINGE IVP ONE (06:28)
[2017-07-18 06:49] LABS: Basophils % 0.2 %; Eosinophils # 0.1 K/mcL (0.0-0.6); Eosinophils % 0.8 %; Hematocrit 34.4 % (37.5-50.1); Hemoglobin 11.5 g/dL (12.9-16.9); Immature Granulocytes % 0.4 % (0-4); Lymphocytes # 1.7 K/mcL (0.6-4.6); Lymphocytes % 20.2 %; Mean Corpuscular HGB Conc 33.4 g/dL (31.6-35.5); Mean Corpuscular Hemoglobin 30.3 pg (28.0-33.3); Mean Corpuscular Volume 90.8 fL (83.0-100.0); Mean Platelet Volume 10.8 fL (9.4-12.4); Monocytes # 0.9 K/mcL (0.0-1.3); Monocytes % 10.8 %; Neutrophils # 5.6 K/mcL (1.6-8.9); Platelet Count 209 K/mcL (140-400); Red Blood Count 3.79 M/mcL (4.19-5.50); Red Cell Distribution Width 14.6 % (11.5-14.5); Segmented Neutrophils % 67.6 %
[2017-07-18] MEDS: amLODIPine 5 MG TABLET PO SCH (09:41)
[2017-07-18] MEDS: Aspirin Enteric Coated 81 MG Tablet PO SCH (09:41)
[2017-07-18] MEDS: Folic Acid 1 MG TABLET PO SCH (09:42)
[2017-07-18] MEDS: Vitamin B Complex/Vit C/Vit E 1 EACH TABLET PO SCH (09:42)
[2017-07-18] MEDS: Thiamine (B-1) 100 MG TABLET PO SCH (09:42)
[2017-07-18] MEDS: Insulin LISPRO 300 UNITS/3 ML VIAL SQ SCH ×2 (09:44→11:37)
[2017-07-18 11:43] VITALS: BP 138/88
--- NOTE | 2017-07-18 13:04 | Discharge Summary ---
<Taylor Pollack - Last Filed: 07/18/17 13:59> - NOTES TO OUTPATIENT PROVIDER Notes to Outpatient Provider: Stress test negative for ischemia. Carotid Duplex shows stenosis of 60-79% of both the right and left ICAs. Orders not resulted at time of discharge: Pending orders: none Date of Encounter: 07/18/17 Time of Encounter: 13:02 - Discharge Diagnosis (1) Acute kidney injury Priority: Secondary Status: Acute (2) Alcohol abuse Priority: Secondary Status: Chronic (3) HTN (hypertension) Priority: Secondary Status: Chronic Qualifiers: Hypertension type: essential hypertension Qualified Code(s): I10 - Essential (primary) hypertension (4) DMII (diabetes mellitus, type 2) Priority: Secondary Status: Chronic Qualifiers: Diabetes mellitus mcc insulin use: without manager intermediate use Diabetes mellitus complication status: without complication Qualified Code(s): E11.9 - Type 2 diabetes mellitus without complications (5) DVT prophylaxis Priority: Secondary Status: Acute (6) Near syncope Priority: Primary Status: Acute Hospital course: Mr. Barber is a 66 year old male who presented to [facility] ED 07/16/17 with a near syncopal episode. He told EMS that he was walking out of the bank when he felt palpitations, chest tightness, diaphoresis, dizziness and nearly passed out. He denied LOC, CP or SOB. He was asymptomatic in the ED. His family stated that they gave him one sublingual nitro which relieved the chest tightness. He was found to have FABIOLA and was given hydration with IVF. His EKG did not reveal any acute ischemic changes, troponin was negative. Orthostatics were positive. His ECHO showed LVEF 65% with mild LV diastolic dysfunction, normal RV function, mild tricuspid regurgitation and mild pulmonary HTN. Carotid duplex imagin shows right RCA stenosis of 60-79% and left ICA stenosis of 60-79%. His stress test was negative for ischemia. Following hydration, the patient's FABIOLA resolved and ischemic workup was negative. His near syncopal episode is thought to be due to dehydration. Pt has improved and has not experienced any symptoms yet. He will be discharged home in stable condition. - Time Spent with Patient Total time spent providing and/or coordinating discharge services: - Discharge Medications Home Medications: Amlodipine Besylate 10 mg PO DAILY 06/12/17 [History] Aspirin [Lo-Dose Aspirin EC] 81 mg PO DAILY 06/12/17 [History] Atorvastatin Calcium [Lipitor] 20 mg PO QPM 06/12/17 [History] Losartan Potassium [Cozaar] 100 mg PO DAILY 06/12/17 [History] Nitroglycerin [Nitrostat] 0.4 mg SL Q5M PRN 06/12/17 [History] hydroCHLOROthiazide [Hydrochlorothiazide] 25 mg PO DAILY 06/12/17 [History] Omeprazole [PriLOSEC] 40 mg PO DAILY #30 cap 06/14/17 [Rx] Allergies/Adverse Reactions: 3 Allergy/AdvReac Type Severity Reaction Status Date / Time No Known Allergies Allergy Verified 07/16/17 16:57 Date of admission: 07/16/17 20:10 [facility] care physician: [facility] Consults: 07/16/17 22:56 Consult to Manager Insurance [CONS] Routine Reason for SW Consult: Hx of alcohol abuse. Assess for rehabilitation needs. 07/17/17 17:27 Consult to Invasive Line Access Team [CONS] Routine Reason for Consult: Picc Line Insertion Line Type: EPIV Discharging clinician: Taylor Pollack Anticipated date of discharge: 07/18/17 - Constitutional Vitals: Temp Pulse Resp BP Pulse Ox 98.5 F 96 16 138/88 99 07/18/17 11:42 07/18/17 11:42 07/18/17 11:42 07/18/17 11:42 07/18/17 11:42 General appearance: Present: cooperative, A&O X 1, pleasant, no acute distress. Absent: answers questions appropriately - Head Head exam: Present: atraumatic, normocephalic - Eye Eye exam: Present: PERRL, conjuntiva pink, sclera anicteric Pupils: Present: PERRL - Neck Neck exam general surgery: Present: supple, trachea midline. Absent: lymphadenopathy - Respiratory Respiratory exam: Present: CTAB. Absent: accessory muscle use, rales, rhonchi, wheezes - Cardiovascular Cardiovascular exam: Present: RRR, +S1, +S2. Absent: diastolic murmur, gallop, rubs, systolic murmur - GI/Abdominal GI/Abdominal exam: Present: normal bowel sounds, soft, no peritoneal signs. Absent: distended, tenderness - Extremities Exam Extremities exam: Present: warm, radial pulses palpable and symmetrical. Absent : calf tenderness, cyanotic, pedal edema - Neurological Exam Neurological exam: Present: alert, normal gait. Absent: motor sensory deficit, facial droop Additional comments: Patient oriented to person only - Expanded Neurological Exam Coma Scale Eye Opening: Spontaneous Coma Scale Motor Response: Obeys Commands Coma Scale Verbal Response: Confused Coma Scale Total: 14 - Psychiatric Psychiatric exam: Present: agitated (pacing the room), anxious - Skin Skin exam: Present: dry, intact - Patient Status Disposition: Home, Self-Care Condition: Good Functional capacity at discharge: independent ambulation Overall status at discharge: patient is progressing back to baseline - Discharge Instructions Instructions: Acute Kidney Injury (DC), Syncope (DC) Follow Up With: DEBBIE,PCP [Primary Care Provider] - 07/24/17 10:15 am Jose Hu [Family Provider] - Additional Instructions: Follow-up appointments: If there is not an appointment listed below, please call your physician and schedule a follow-up appointment. If you have congestive heart failure and your symptoms return, make an appointment with your physician. Medication List: Carry an up to date list of medications you are taking at all time. We have given you an updated medication list including any new medications that you have been prescribed. Please provide that list to your primary provider Symptoms: If your condition changes or you experience any of the following symptoms, notify your physician immediately: Unusual or worsening pain, fever, persistent nausea and vomiting, bleeding, increase in swelling (especially in your legs), sudden weight gain, extreme dizziness, chest pain, increased drainage or redness from a wound or incision. Go to the emergency department if you experience a problem with breathing. Weights: If you have a history of swelling or shortness of breath, weigh yourself daily and notify your physician if you have a weight gain of two or more pounds in one day or 5 or more pounds in a week. If you experience any of the warning signs for stroke: Sudden numbness or weakness of the face, arm or leg; especially on one side of the body, sudden confusion, trouble speaking or understanding, sudden trouble seeing in one or both eyes, sudden trouble walking, dizziness, loss of balance or coordination, sudden sever headache with no cause; Call 911 or go to the emergency room. Stroke is a medical emergency. Some risk factors for stroke: Age, cigarette smoking, diabetes, excessive alcohol consumption, family history , high blood pressure, overweight, physical inactivity, prior stroke, heart attack, diagnosis of carotid artery stenosis or other artery disease. If you smoke, STOP: Smoking or tobacco use significantly increases your risk of heart and lung disease. Your chance of disease greatly increases if you continue to smoke. For more information, call the [place] tobacco quit line for smoking cessation 7-- QUIT-NOW ( ) - Diet and Activity Activity: increase activity as tolerated Diet: diabetic diet - VTE Documentation of Mechanical Device: Venous foot pump, device <Jeremiasjose eduardoalberSurendra Fareedrubio - Last Filed: 07/18/17 18:56> Orders not resulted at time of discharge: Pending orders 07/18/17 06:00 NM yamel perf SPECT multi [NM] Routine Date of Encounter: 07/18/17 - Discharge Diagnosis (1) Alcohol abuse Status: Chronic (2) Acute kidney injury Status: Acute (3) HTN (hypertension) Status: Chronic Qualifiers: Hypertension type: essential hypertension Qualified Code(s): I10 - Essential (primary) hypertension (4) DMII (diabetes mellitus, type 2) Status: Chronic Qualifiers: Diabetes mellitus manager intermediate insulin use: without manager intermediate use Diabetes mellitus complication status: without complication Qualified Code(s): E11.9 - Type 2 diabetes mellitus without complications (5) DVT prophylaxis Status: Acute (6) Near syncope Status: Acute Hospital course: Mr. Barber is a 66 year old male - Time Spent with Patient Total time spent providing and/or coordinating discharge services: Date of admission: 07/16/17 20:10 [facility] care physician: [facility] Consults: 07/16/17 22:56 Consult to Manager Insurance [CONS] Routine Reason for SW Consult: Hx of alcohol abuse. Assess for rehabilitation needs. 07/17/17 17:27 Consult to Invasive Line Access Team [CONS] Routine Reason for Consult: Picc Line Insertion Line Type: EPIV - Constitutional Vitals: Temp Pulse Resp BP Pulse Ox 98.5 F 96 16 138/88 99 07/18/17 11:42 07/18/17 11:42 07/18/17 11:42 07/18/17 11:42 07/18/17 11:42 - Attending Attestation I examined this patient and my medical decision-making was reviewed with the Resident Physician. I agree with the documented findings, disposition and treatment plan as described except to the extent set forth below.
== END 2017-07-18 15:47 | disposition home or self-care (01) ==
LOC: EMEROO 16:03 → 3NENU 16:03
PROVIDERS: ADMIT Internal Medicine; ATTEND Internal Medicine